=== PATIENT | male | born 1995 | race Caucasian/White ===

== ENCOUNTER 2020-06-29 20:31 | Emergency (ER) | payer OTHER, SELFPAY ==
--- NOTE | ~2020-06-29 | XR_ITS ---
EXAMINATION: XR chest 1V portable EXAM DATE: 06/29/2020 20:58 INDICATION: Diabetic ketoacidosis. TECHNIQUE: Portable AP frontal chest x-ray was obtained. There is no prior study for comparison. FINDINGS: The lungs are clear. There are no pleural effusions. The cardiomediastinal silhouette is within normal limits. There is no pneumothorax suspected. The bones and soft tissues are unremarkab le. IMPRESSION: Normal chest x-ray exam. Reviewed, dictated and finalized at location A. IMPRESSION: Normal chest x-ray exam.
[2020-06-29 20:33] VITALS: BP 118/68; PULSE 108; RESP 16; TEMP 36.8; O2SAT 100
[2020-06-29 20:35] VITALS: BP 118/68; PULSE 108; RESP 16; TEMP 36.8; O2SAT 100
--- NOTE | 2020-06-29 20:50 | ECG_ITS ---
Measurements Intervals [place] Rate: 112 P: 68 [place]: 128 QRS: 39 QRSD: 89 T: 47 QT: 309 QTc: 424 Interpretive Statements SINUS TACHYCARDIA POSSIBLE RIGHT ATRIAL ENLARGEMENT LEFT ATRIAL ENLARGEMENT NONSPECIFIC T-WAVE ABNORMALITY- INFERIOR LEADS ABNORMAL ECG Electronically Signed On 06-30-2020 7:09:13 CDT by Coy Bhat D.O.
[2020-06-29] MEDS: ONDANSETRON INJ 4 MG/2 ML VIAL IV PUSH (20:54)
[2020-06-29 20:56] LABS: Basophils Absolute Auto 0.11 K/mm3 (0.00-0.10); Eosinophils Absolute Auto 0.18 K/mm3 (0.02-0.50); Eosinophils Percent Auto 1.6 % (1.0-6.0); Hematocrit 52.3 % (40.0-54.0); Hemoglobin 17.5 g/dL (14.0-18.0); Immature Granulocyte Percent A 0.9 % (0.0-0.0); Lymphocytes Absolute Auto 2.21 K/mm3 (1.10-4.50); Lymphocytes Percent Auto 20.2 % (18.0-42.0); Mean Corpuscular HGB Conc 33.5 g/dL (32.0-36.0); Mean Corpuscular Hemoglobin 29.9 pg (27.0-31.0); Mean Corpuscular Volume 89.4 fL (78.0-102.0); Mean Platelet Volume 10.6 fl (8.7-11.0); Monocytes Absolute Auto 0.33 K/mm3 (0.10-0.90); Neutrophils Percent Auto 73.3 % (50.0-70.0); Platelet Count Result 445 K/mm3 (150-420); Red Blood Count 5.85 M/mm3 (4.70-6.10); Red Cell Distribution Width 11.9 % (11.6-14.4)
[2020-06-29] MEDS: INSULIN HUMAN REGULAR (*BKC) 100 UNITS in SODIUM CHLORIDE 0.9% IV 99 ML 6 UNITS IV CONT (21:00)
[2020-06-29] MEDS: SODIUM CHLORIDE 0.9% IV 100 ML 6 ML (21:00)
[2020-06-29] MEDS: SODIUM CHLORIDE 0.9% IV 2,000 ML 999 ML IV CONT (21:02)
[2020-06-29 21:03] LABS: Acetone Small (Negative)
[2020-06-29] MEDS: KETOROLAC 15 MG/ML VIAL (*BKC) IV PUSH (21:03)
[2020-06-29 21:11] LABS: Alanine Aminotransferase 58 U/L (16-63); Albumin Level 4.7 g/dL (3.4-5.0); Alkaline Phosphatase 146 U/L (46-116); Anion Gap 24 mmol/L (8-16); Aspartate Amino Transferase 28 U/L (15-37); Bilirubin,Total 0.7 mg/dL (0.00-1.00); Blood Urea Nitrogen 22 mg/dL (7-18); Calcium 10.4 mg/dL (8.5-10.1); Carbon Dioxide 15 mmol/L (21-32); Chloride 95 mmol/L (98-108); Estimated CRCL calculation 55 ml/min; Estimated Glomerular Filt Rate 57; Lipase 97 U/L (73-393); Potassium 3.9 mmol/L (3.5-5.1); Sodium 134 mmol/L (136-145); Total Protein 9.4 g/dL (6.4-8.2)
[2020-06-29 21:13] LABS: Glucose 596 mg/dL (70-99); Osmolality Calculated 309 mOsm/kg (285-295)
[2020-06-29 21:20] LABS: Add Urine Microscopic? YES; Appearance Urine Clear (Clear); Bilirubin Urine Negative (Negative); Blood Urine 3+ (Negative); Color Urine Yellow (Yellow); Glucose Urine UA 3+ (Negative); Ketones Urine 3+ (Negative); Leukocyte Esterase Ur Negative LEU/UL (Negative); Nitrate Urine Negative (Negative); Protein Urine Negative (Negative); Urobilinogen Urine 0.2 mg/dL (0.2-1.0)
[2020-06-29 21:26] LABS: Bacteria Urine Trace /hpf; WBC Urine 0-3 /hpf (0-3)
--- NOTE | 2020-06-29 21:32 | ED.GENADULT ---
HPI - General Adult General Chief complaint: Nausea/Vomiting/Diarrhea Stated complaint: DKA Source: patient Mode of arrival: ambulatory Limitations: no limitations History of Present Illness HPI narrative: Pt is a diabetic, and has had some problems getting his insulin. He started feeling sick about 6 hours ago. He has been vomiting and having a lot of nausea ever since this started. He had DKA last several months ago. He denies fever chills. He has had abdominal pain, and that started about a week ago. he states the discomfort is in his lower abdomen. (however he pointed to periumbilical area for pain. Location: abdomen Radiation: non-radiation Pain Consistency: constant Relieving factors: none Exacerbating factors: none Associated symptoms: diaphoresis, loss of appetite, nausea/vomiting and weakness Related Data Home Medications Medication Instructions Recorded Confirmed insulin glargine [Lantus U-100 40 unit SUBCUT QPM 06/29/20 06/29/20 Insulin] metoprolol tartrate 12.5 mg PO BID 06/29/20 06/29/20 omeprazole 10 mg PO DAILY 06/29/20 06/29/20 simvastatin 10 mg PO DAILY 06/29/20 06/29/20 Allergies Allergy/AdvReac Type Severity Reaction Status Date / Time No Known Allergies Allergy Verified 06/29/20 21:23 Review of Systems Review of Systems: All systems reviewed & are unremarkable except as noted in HPI and below Constitutional: Constitutional: Denies chills, Reports fatigue, Denies fever(s) and Reports weakness Eyes: Eyes: Reports no additional eye complaints ENT: Reports system reviewed and no additional complaints, except as documented Cardiovascular: Cardiovascular: Reports no additional cardiovascular complaints Respiratory: Respiratory: Reports no additional respiratory complaints Gastrointestinal: Gastrointestinal: Reports abdominal pain, Denies bloating, Denies constipation, Denies heartburn, Denies diarrhea, Reports nausea and Reports vomiting Genitourinary: Genitourinary: Reports no additional male genitourinary complaints Musculoskeletal: Musculoskeletal: Reports no additional musculoskeletal complaints Integumentary/Breasts: Skin/Breast: Reports system reviewed and no additional complaints, except as docu Neurologic: Reports system reviewed and no additional complaints, except as documented and Reports weakness Psychiatric: Psychiatric: Reports no additional psychiatric complaints Endocrine: Endocrine: Reports no additional endocrine complaints Hematologic/Lymphatic: Hematologic/Lymphatic: Reports no additional hematologic/lymphatic complaints Allergic/Immunologic: Allergic/Immunologic: Reports no additional allergic/immunologic complaints [facility] Past Medical History Medical History (Updated 06/30/20 @ 00:26 by Hayley Gonzales MD) Diabetes HTN (hypertension) Hypercholesteremia Myocardial infarct, old Social History Social History Gender identity (if verbalized by the patient): Male Exam Const: General: alert and ill appearing Nutritional Appearance: thin HENMT: Head: normal to inspection, no contusions, no hematomas and no lacerations Face and sinus: normal facial exam Mouth: Yes moist mucous membranes Eyes: Conjunctivae: conjunctivae normal Pupils: Equal, round and reactive pupils present Neck: Neck: normal visual inspection Chest: Chest palpation & inspection: normal inspection of the chest Resp: Effort & Inspection: normal respiratory effort Auscultation: clear to auscultation bilaterally Cardio: Rate: tachycardic Rhythm: regular rhythm GI: GI Palp: Yes Soft to palpation and Yes Tenderness to palpation present (GI) (diffusely tender) Auscultation: normal bowel sounds Back/Spine/Pelvis: Back: no CVA tenderness Skin: General skin exam: normal color Rashes: no rashes Neuro: General: patient oriented x3 and moves all extremities Extrem: General: normal to inspection and no pedal edema
[2020-06-29 22:02] LABS: Glucose Point of Care 317 (65-105)
[2020-06-29 22:25] VITALS: BP 104/51; PULSE 81; RESP 18; O2SAT 98
[2020-06-29 22:44] LABS: Glucose Point of Care 286 (65-105)
[2020-06-29 22:59] VITALS: BP 104/54; PULSE 83; RESP 16; O2SAT 98
[2020-06-29] MEDS: SODIUM CHLORIDE 0.9% IV 1,000 ML 999 ML IV CONT (23:10)
--- NOTE | 2020-06-29 23:12 | PC.NURSE ---
2nd liter of NS completed at 2308, 3rd liter started 2310
[2020-06-29 23:17] LABS: Glucose Point of Care 234 (65-105)
[2020-06-29 23:48] LABS: Glucose Point of Care 205 (65-105)
[2020-06-30 00:11] VITALS: BP 108/80; PULSE 77; RESP 16; O2SAT 99
[2020-06-30 00:13] LABS: Glucose Point of Care 183 (65-105)
[2020-06-30 00:14] LABS: Acetone Small (Negative)
[2020-06-30 00:16] LABS: Anion Gap 12 mmol/L (8-16); Blood Urea Nitrogen 20 mg/dL (7-18); Calcium 8.3 mg/dL (8.5-10.1); Carbon Dioxide 23 mmol/L (21-32); Chloride 108 mmol/L (98-108); Estimated CRCL calculation 74 ml/min; Estimated Glomerular Filt Rate > 60; Glucose 219 mg/dL (70-99); Osmolality Calculated 305 mOsm/kg (285-295); Potassium 4.2 mmol/L (3.5-5.1); Sodium 143 mmol/L (136-145)
--- NOTE | 2020-06-30 00:26 | PC.NURSE ---
patient signed out AMA
--- NOTE | 2020-06-30 00:28 | PC.NURSE ---
NS 3liter infused, Insulin gtt stopped. IV removed intact.
== END 2020-06-30 00:28 | disposition left against medical advice (07) ==
PROVIDERS: Emergency Provider Emergency Medicine
DX: E11.10 Type 2 diabetes mellitus with ketoacidosis without coma (principal); Z79.4 Long term (current) use of insulin
CPT/HCPCS: 36415; 71045; 80048; 80053; 81001; 82010; 82948; 83690; 85025; 93005; 96365; 96366; 96375; 99283; 99284; J1885; J2405; J7030

== ENCOUNTER 2020-11-22 10:40 | Emergency (ER) | payer OTHER, SELFPAY ==
[2020-11-22 11:12] VITALS: BP 130/80; PULSE 94; RESP 20; TEMP 36.7; O2SAT 99
--- NOTE | 2020-11-22 11:18 | ED.HA ---
HPI - Headache General Chief Complaint: Headache Stated Complaint: headace, n/v/d Time Seen by Provider: 11/22/20 11:08 History of Present Illness HPI Narrative: 25 yo male presents to the ED for a headache. He reports that he has had a chronic episodic headache for more than a month. He states that he has been seen in the ED for it numerous times and had many tests done. He says that he does not want to talk about it anymore. He is only here because his girlfriend made him come and he would like to be discharged. Related Data Home Medications Medication Instructions Recorded Confirmed insulin glargine [Lantus U-100 40 unit SUBCUT QPM 06/29/20 06/29/20 Insulin] metoprolol tartrate 12.5 mg PO BID 06/29/20 06/29/20 aspirin 81 mg PO DAILY 11/22/20 gabapentin 250 mg PO DAILY 11/22/20 insulin lispro [Humalog U-100 1 sliding scale dose SUBCUT 11/22/20 Insulin] USEASDIRECTD pantoprazole 20 mg PO QAM 11/22/20 Allergies Allergy/AdvReac Type Severity Reaction Status Date / Time No Known Allergies Allergy Verified 11/22/20 11:15 Review of Systems Review of Systems: Narrative: Unable to obtain due to patient refusal. Constitutional: Constitutional: Denies fever(s) Eyes: Eyes: Reports photophobia Neurologic: Denies confusion and Reports headache(s) [facility] Past Medical History Medical History Diabetes HTN (hypertension) Hypercholesteremia Myocardial infarct, old Social History Social History Gender identity (if verbalized by the patient): Male Exam Narrative: Exam Narrative: Exam limited by refusal of patient to participate Const: General: healthy appearing, no acute distress and alert Orientation/consciousness: patient oriented x3 HENMT: Head: normal to inspection Resp: Effort & Inspection: normal respiratory effort Skin: General skin exam: normal color Neuro: General: patient oriented x3 and moves all extremities Speech: normal speech Gait exam (Neuro): Normal gait present Extrem: General: normal to inspection Course Vital Signs Vital signs: Vital Signs Temperature 36.7 C 11/22/20 11:12 Pulse Rate 94 11/22/20 11:12 Respiratory Rate 20 11/22/20 11:12 Blood Pressure 130/80 11/22/20 11:12 Pulse Oximetry 99 11/22/20 11:12 Temperature 36.7 C 11/22/20 11:12 Pulse Rate 94 11/22/20 11:12 Respiratory Rate 20 11/22/20 11:12 Blood Pressure 130/80 11/22/20 11:12 Pulse Oximetry 99 11/22/20 11:12 MDM - Headache MDM Narrative Medical decision making narrative: Evaluation limited. I told the patient that I would not be able to help him if he would not provide history or allow me to examine him. He said that he understands and does not want any further evaluation. Differential Diagnosis Differential diagnosis: Likely migraine, tension headache, subarachnoid hemorrhage and headache Discharge Plan Discharge Clinical Impression: Headache Qualifiers: Headache type: unspecified Headache chronicity pattern: episodic headache Patient Disposition: Home, Self-Care Condition: Stable Instructions: Acute Headache (ED) Prescriptions: No Action Lantus U-100 Insulin 100 unit/mL Solution 40 unit SUBCUT QPM RF: 0 metoprolol tartrate 25 mg Tablet 12.5 mg PO BID RF: 0 pantoprazole 20 mg Tablet,Delayed Release (Dr/Ec) 20 mg PO QAM RF: 0 aspirin 81 mg Tablet 81 mg PO DAILY RF: 0 insulin lispro [Humalog U-100 Insulin] 100 unit/mL Solution 1 sliding scale dose SUBCUT USEASDIRECTD RF: 0 gabapentin 100 mg Tablet 250 mg PO DAILY RF: 0 Follow-up/Referrals: Celio,Josh Coleman MD [Primary Care Provider] -
--- NOTE | 2020-11-22 11:31 | PC.NURSE ---
Pt does not want to stay. Tore his armband off and ambulated out of dept.
== END 2020-11-22 11:33 | disposition home or self-care (01) ==
PROVIDERS: Emergency Provider Emergency Medicine; PCP Internal Medicine
DX: R51.9 Headache, unspecified (principal); E11.9 Type 2 diabetes mellitus without complications; I10 Essential (primary) hypertension; E78.00 Pure hypercholesterolemia, unspecified; I25.2 Old myocardial infarction
CPT/HCPCS: 99281

== ENCOUNTER 2021-02-23 16:28 | Emergency (ER) | payer OTHER, SELFPAY ==
--- NOTE | ~2021-02-23 | XR_ITS ---
EXAMINATION: XR chest 1V portable DATE: 02/23/2021 16:44 INDICATION: Diabetes. TECHNIQUE: A single frontal view of the chest was obtained. COMPARISON: Chest single view 06/29/2020 FINDINGS: The chest demonstrates clear lungs without pneumonia, pleural effusion, or pneumothorax. Th e heart size is normal. IMPRESSION: 1. No acute cardiopulmonary disease. Reviewed, dictated and finalized at location A.
[2021-02-23 16:27] VITALS: BP 126/79; PULSE 103; RESP 14; TEMP 36.6; O2SAT 99
--- NOTE | 2021-02-23 16:35 | ECG_ITS ---
Measurements Intervals [place] Rate: 103 P: 62 [place]: 134 QRS: 37 QRSD: 93 T: 44 QT: 324 QTc: 424 Interpretive Statements SINUS TACHYCARDIA POSSIBLE LEFT ATRIAL ENLARGEMENT BORDERLINE T WAVE ABNORMALITY- INFERIOR LEADS BASELINE WANDER- I, II, III BORDERLINE ECG Electronically Signed On 02-24-2021 6:54:29 CDT by Coy Bhat D.O.
[2021-02-23 17:05] LABS: Basophils Absolute Auto 0.1 K/mm3 (0.0-0.1); Basophils Percent Auto 0.9 % (0.2-1.2); Eosinophils Absolute Auto 0.6 K/mm3 (0-0.3); Eosinophils Percent Auto 4.8 % (0-4.4); Hematocrit 42.9 % (42.0-52.0); Hemoglobin 14.4 g/dL (14.0-18.0); Immature Granulocyte Absolute 0.07 K/mm3 (0.00-0.031); Immature Granulocyte Percent A 0.5 % (0-0.5); Lymphocytes Absolute Auto 1.65 K/mm3 (0.9-3.2); Lymphocytes Percent Auto 12.9 % (18.3-44.2); Mean Corpuscular HGB Conc 33.6 g/dl (32-36); Mean Corpuscular Hemoglobin 30.3 pg (26-34); Mean Corpuscular Volume 90.3 fl (80-100); Mean Platelet Volume 9.4 fl (7.4-10.4); Monocytes Absolute Auto 0.8 K/mm3 (0.1-0.6); Monocytes Percent Auto 6.5 % (2.6-8.5); Neutrophils Absolute Auto 9.5 K/mm3 (1.3-6.7); Neutrophils Percent Auto 74.4 % (45.5-73.1); Platelet Count Result 396 k/mm3 (150-375); Red Blood Count 4.75 M/mm3 (4.6-6.20); Red Cell Distribution Width 12.4 % (11.5-14.5); White Blood Count 12.8 K/mm3 (4.5-10.0)
[2021-02-23 17:15] LABS: Ethanol < 10 mg/dL (<10); INR 0.9; Prothrombin Time 12.6 Seconds (11.1-14.7)
[2021-02-23 17:23] LABS: Alanine Aminotransferase 86 U/L (4-50); Albumin Level 4.1 g/dL (3.5-5.1); Alkaline Phosphatase 128 U/L (38-126); Anion Gap 11 mmol/L (8-16); Aspartate Amino Transferase 70 U/L (17-59); Bilirubin,Total 0.3 mg/dL (0.2-1.3); Blood Urea Nitrogen 16 mg/dL (9-20); Calcium 9.6 mg/dL (8.4-10.2); Carbon Dioxide 27 mmol/L (22-30); Chloride 102 mmol/L (98-107); Estimated CRCL calculation 124 ml/min; Estimated Glomerular Filt Rate > 60; Glucose 123 mg/dL (75-110); Potassium 3.6 mmol/L (3.4-5.0); Sodium 140 mmol/L (137-145)
[2021-02-23 17:28] LABS: NT Pro B Type Natriuretic Pept 66 pg/mL (5-100); Troponin I < 0.012 ng/mL (0.000-0.034)
[2021-02-23 17:38] VITALS: BP 97/56; PULSE 88; RESP 14; O2SAT 98
[2021-02-23 17:53] LABS: Amphetamine Screen Urine Negative (Negative); Barbiturate Screen Urine Negative (Negative); Benzodiazepines Screen Urine Negative (Negative); Cannabinoid Screen Urine Positive (Negative); Cocaine Screen Urine Negative (Negative); Methadone Screen Urine Negative (Negative); Opiate Screen Urine Negative (Negative); Phencyclidine Screen Urine Negative (Negative)
[2021-02-23 18:09] VITALS: BP 99/57; PULSE 95; RESP 14; O2SAT 100
--- NOTE | 2021-02-23 18:12 | ED.GENADULT ---
HPI - General Adult General Chief complaint: Recheck/Abnormal Lab/Rx Stated complaint: low bg Time Seen by Provider: 02/23/21 16:30 Source: patient Mode of arrival: EMS Limitations: no limitations History of Present Illness HPI narrative: 25-year-old with a history of type 1 diabetes was brought in from home in an ambulance with complaints of passing out spell. As per the EMS he was hypoglycemic. 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 Patient states that he does not check his blood sugar but he does use sliding scale. Patient states that he was taking his grandpa to [facility] and did eat some lunch later. Patient also mentions he was trying to fix garbage disposal under the sink and he blacked out for few minutes. Patient presently denies any headache, chest pain, shortness of breath, nausea or vomiting. Denies alcohol or drug use. Onset (ago): minute(s) (45) Exacerbating factors: none Associated symptoms: denies other symptoms Related Data Home Medications Medication Instructions Recorded Confirmed insulin glargine [Lantus U-100 40 unit SUBCUT QPM 06/29/20 06/29/20 Insulin] metoprolol tartrate 12.5 mg PO BID 06/29/20 06/29/20 aspirin 81 mg PO DAILY 11/22/20 gabapentin 250 mg PO DAILY 11/22/20 insulin lispro [Humalog U-100 1 sliding scale dose SUBCUT 11/22/20 Insulin] USEASDIRECTD pantoprazole 20 mg PO QAM 11/22/20 Allergies Allergy/AdvReac Type Severity Reaction Status Date / Time No Known Allergies Allergy Verified 02/23/21 16:31 Review of Systems Review of Systems: All systems reviewed & are unremarkable except as noted in HPI and below Constitutional: Constitutional: Reports no additional constitutional complaints Eyes: Eyes: Reports no additional eye complaints ENT: Reports system reviewed and no additional complaints, except as documented Cardiovascular: Cardiovascular: Reports no additional cardiovascular complaints Gastrointestinal: Gastrointestinal: Reports no additional gastrointestinal complaints Musculoskeletal: Musculoskeletal: Reports no additional musculoskeletal complaints Integumentary/Breasts: Skin/Breast: Reports system reviewed and no additional complaints, except as docu Neurologic: Reports system reviewed and no additional complaints, except as documented [facility] Past Medical History Medical History Diabetes HTN (hypertension) Hypercholesteremia Myocardial infarct, old Social History Social History Gender identity (if verbalized by the patient): Male Exam Narrative: Exam Narrative: GENERAL: Well-appearing, well-nourished, and in no acute distress. HEAD: Normocephalic, atraumatic. EYES: PERRLA and EOMI. ENT: Nares clear, no rhinorrhea or epistaxis. Mucous membranes moist. NECK: Supple. CHEST: Tachycardic HEART: Regular rate and rhythm. No murmur heard. Normal peripheral pulses. ABDOMEN: Soft, nontender, nondistended, normal active bowel sounds. EXTREMITIES: Normal range of motion. No edema. SKIN: Warm, dry, has multiple superficial ulcers in both upper extremities nondraining NEURO: No focal deficits. Alert and oriented x3. PSYCH: Normal mood and affect. Course Course Emergency Course: Patient was placed on the ED cardiac monitor upon arrival few minutes later he had a brief episode of nonsustained V. tach which was captured. However he had no symptoms when he had this episode. I was in the room talking to him I did mention to him did you feel anything and he said no. I discussed lab work and EKG findings with him and recommended for admission. Patient agreed for admission few minutes later he calls nursing that he wants to sign out AMA. Vital Signs Vital signs: Vital Signs Temperature 36.6 C 02/23/21 16:27 Pulse R
== END 2021-02-23 18:15 | disposition left against medical advice (07) ==
PROVIDERS: Emergency Provider Family Medicine
DX: R55 Syncope and collapse (principal); E10.649 Type 1 diabetes mellitus with hypoglycemia without coma; I10 Essential (primary) hypertension; E78.00 Pure hypercholesterolemia, unspecified; I25.2 Old myocardial infarction; Z79.4 Long term (current) use of insulin; R00.0 Tachycardia, unspecified; R94.31 Abnormal electrocardiogram [ECG] [EKG]
CPT/HCPCS: 36415; 71045; 80053; 80307; 83735; 83880; 84443; 84484; 85025; 85610; 93005; 99284

== ENCOUNTER 2021-02-25 22:25 | Emergency (ER) | payer OTHER, SELFPAY ==
[2021-02-25 22:30] VITALS: BP 125/86; PULSE 97; RESP 20; TEMP 36.3; O2SAT 100
--- NOTE | 2021-02-25 22:38 | ED.RECABL ---
HPI - Recheck/Abnormal Lab/Rx General Chief Complaint: Nausea/Vomiting/Diarrhea Stated Complaint: Daibetic sugars are 519/been throwing Source: patient and RN notes reviewed Mode of arrival: ambulatory Limitations: no limitations History of Present Illness HPI narrative: patient is having some vomiting and elevated blood sugar to 519. He was just released from [facility] at 1:00 p.m.. He was there in the emergency room for approximately 5 hours and was given IV fluids. He was at [facility] 2 days ago for low blood sugar. He was given prescriptions for his insulin. He does not have a primary care physician. He does not monitor his blood sugars. He gets his insulin from the emergency room. MD complaint: abnormal lab Symptoms since prior visit: fever Related Data Home Medications Medication Instructions Recorded Confirmed insulin glargine [Lantus U-100 35 unit SUBCUT QPM 06/29/20 02/25/21 Insulin] insulin lispro [Humalog U-100 1 sliding scale dose SUBCUT 11/22/20 02/25/21 Insulin] USEASDIRECTD Allergies Allergy/AdvReac Type Severity Reaction Status Date / Time No Known Allergies Allergy Verified 02/23/21 16:31 Review of Systems Review of Systems: All systems reviewed & are unremarkable except as noted in HPI and below Constitutional: Constitutional: Denies chills and Denies fever(s) Cardiovascular: Cardiovascular: Denies chest pain Respiratory: Respiratory: Denies cough and Denies dyspnea Gastrointestinal: Gastrointestinal: Reports as per HPI and Denies diarrhea Genitourinary: Genitourinary: Denies hematuria and Denies dysuria Musculoskeletal: Musculoskeletal: Reports no additional musculoskeletal complaints Neurologic: Reports headache(s) and Denies focal weakness PMFSH Past Medical History Medical History (Updated 02/26/21 @ 00:46 by Morris Colorado MD) Diabetes HTN (hypertension) Hypercholesteremia Myocardial infarct, old Surgical History Surgical History (Updated 02/25/21 @ 23:00 by Morris Colorado MD) H/O heart artery stent Social History Social History Gender identity (if verbalized by the patient): Male Exam Const: General: healthy appearing and no acute distress Nutritional Appearance: well nourished and thin Orientation/consciousness: patient oriented x3 HENMT: Head: normal to inspection Ears: external ears normal Face and sinus: normal facial exam Mouth: Yes moist mucous membranes Eyes: Conjunctivae: conjunctivae normal Pupils: Equal, round and reactive pupils present EOM: EOMs intact bilaterally Neck: Neck: normal visual inspection Resp: Effort & Inspection: normal respiratory effort Auscultation: clear to auscultation bilaterally Cardio: Rate: regular rate Rhythm: regular rhythm GI: GI Palp: Yes Soft to palpation and No Tenderness to palpation present (GI) Auscultation: normal bowel sounds Back/Spine/Pelvis: Cervical Spine: cervical ROM normal Thoracic/Lumbar Spine: thoraco-lumbar ROM normal Skin: General skin exam: normal color Rashes: no rashes Neuro: General: patient oriented x3, moves all extremities and no focal motor deficits Speech: normal speech Gait exam (Neuro): Normal gait present Extrem: General: normal to inspection and no clubbing, cyanosis or edema Psych: Appearance: grossly normal and well kempt Mental Status: mental status grossly normal Affect: normal affect Attitude: cooperative Thought content: Yes Normal thought content present Course Course Emergency Course: patient much better after 1 L of LR and insulin. He is not in DKA. He understands he has to monitor his blood sugars better. Vital Signs Vital signs: Vital Signs Temperature 36.3 C L 02/25/21 22:30 Pulse Rate 97 02/25/21 22:30 Respiratory Rate 20 02/25/21 22:30 Blood Pressure 125/86 02/25/21 22:30 Pulse Oximetry 100 02/25/21 22:30 Temperature 36.6 C 02/26/21 00:51
[2021-02-25 22:57] LABS: Glucose Point of Care 426 (65-105)
[2021-02-25 23:05] LABS: Add Urine Microscopic? YES; Appearance Urine Clear (Clear); Basophils Absolute Auto 0.11 K/mm3 (0.00-0.10); Basophils Percent Auto 1.1 % (0.0-1.0); Bilirubin Urine Negative (Negative); Blood Urine Negative (Negative); Color Urine Yellow (Yellow); Eosinophils Absolute Auto 0.39 K/mm3 (0.02-0.50); Eosinophils Percent Auto 3.9 % (1.0-6.0); Glucose Urine UA 3+ (Negative); Hematocrit 40.1 % (40.0-54.0); Hemoglobin 13.1 g/dL (14.0-18.0); Immature Granulocyte Absolute 0.05 K/mm3 (0.00-0.00); Immature Granulocyte Percent A 0.5 % (0.0-0.0); Ketones Urine 3+ (Negative); Leukocyte Esterase Ur Negative LEU/UL (Negative); Lymphocytes Absolute Auto 2.01 K/mm3 (1.10-4.50); Lymphocytes Percent Auto 19.9 % (18.0-42.0); Mean Corpuscular HGB Conc 32.7 g/dL (32.0-36.0); Mean Corpuscular Hemoglobin 29.9 pg (27.0-31.0); Mean Corpuscular Volume 91.6 fL (78.0-102.0); Mean Platelet Volume 9.9 fl (8.7-11.0); Monocytes Absolute Auto 0.75 K/mm3 (0.10-0.90); Monocytes Percent Auto 7.4 % (2.0-11.0); Neutrophils Absolute Auto 6.8 K/mm3 (1.7-7.2); Neutrophils Percent Auto 67.2 % (50.0-70.0); Nitrate Urine Negative (Negative); Platelet Count Result 325 K/mm3 (150-420); Protein Urine Negative (Negative); Red Blood Count 4.38 M/mm3 (4.70-6.10); Red Cell Distribution Width 12.3 % (11.6-14.4); Urobilinogen Urine 0.2 mg/dL (0.2-1.0); White Blood Count 10.1 K/mm3 (4.8-10.8); pH Urine 5.5 (5.0-8.0)
[2021-02-25 23:14] LABS: Bacteria Urine Trace /hpf; RBC Urine 0-2 /hpf (0-2); Squamous Epithelial Cell Urine None seen /hpf (Few); WBC Urine 0-3 /hpf (0-3)
[2021-02-25] MEDS: LACTATED RINGERS 1,000 ML 999 ML IV CONT (23:21)
[2021-02-25] MEDS: ONDANSETRON INJ 4 MG/2 ML VIAL IV PUSH (23:22)
[2021-02-25] MEDS: INSULIN HUMAN REGULAR (*BKC) 100 UNITS/ML 15 UNITS SUB-Q (23:24)
[2021-02-25 23:25] LABS: Lactic Acid Reflex 1.5 mmol/L (0.4-2.0)
[2021-02-25] MEDS: INSULIN HUMAN REGULAR (*BKC) 100 UNITS/ML 7 UNITS IV PUSH (23:25)
[2021-02-25 23:28] LABS: Alanine Aminotransferase 96 U/L (16-63); Albumin Level 3.2 g/dL (3.4-5.0); Alkaline Phosphatase 183 U/L (46-116); Anion Gap 14 mmol/L (8-16); Aspartate Amino Transferase 50 U/L (15-37); Bilirubin,Total 0.6 mg/dL (0.00-1.00); Blood Urea Nitrogen 23 mg/dL (7-18); CRP 1.3 mg/dL (0.0-0.9); Calcium 9.1 mg/dL (8.5-10.1); Carbon Dioxide 24 mmol/L (21-32); Chloride 95 mmol/L (98-108); Estimated CRCL calculation 59 ml/min; Estimated Glomerular Filt Rate > 60; Potassium 4.9 mmol/L (3.5-5.1); Sodium 133 mmol/L (136-145)
[2021-02-25 23:29] LABS: Glucose 512 mg/dL (70-99); Osmolality Calculated 302 mOsm/kg (285-295)
--- NOTE | 2021-02-26 00:08 | PC.NURSE ---
Addendum entered by Ingrid Galo RN 02/26/21 00:11: Amended note, BS was at 321. Original Note: Pt. sleeping, IVF infused and recheck of BS is now at 367. VSS
[2021-02-26 00:38] LABS: Glucose Point of Care 321 (65-105)
[2021-02-26 00:51] VITALS: BP 130/74; PULSE 75; RESP 20; TEMP 36.6; O2SAT 100
[2021-02-26 17:09] LABS: Glucose Point of Care 299 (65-105)
== END 2021-02-26 00:54 | disposition home or self-care (01) ==
PROVIDERS: Emergency Provider Emergency Medicine
DX: E10.65 Type 1 diabetes mellitus with hyperglycemia (principal); Z79.4 Long term (current) use of insulin
CPT/HCPCS: 36415; 80053; 81001; 82948; 83605; 85025; 86140; 96361; 96374; 96375; 99283; 99284; J1815; J2405; J7120

== ENCOUNTER 2021-03-02 10:19 | Emergency (ER) | payer OTHER, SELFPAY ==
--- NOTE | ~2021-03-02 | XR_ITS ---
XR chest 2V DATE: 03/02/2021 10:53 INDICATION: Shortness of breath. Tachycardia. Smoker. TECHNIQUE: PA and lateral views COMPARISON: 02/23/2021 portable AP chest FINDINGS: Normal heart size. No hilar or mediastinal enlargement. No pulmonary infiltrate or consol idation, pulmonary vascular congestion or pleural effusion or pneumothorax. IMPRESSION: No active cardiopulmonary disease Reviewed, dictated and finalized at location A.
--- NOTE | 2021-03-02 10:25 | ED.GENADULT ---
HPI - General Adult General Chief complaint: Upper Respiratory Infection Stated complaint: Shortness of Breath Time Seen by Provider: 03/02/21 10:38 Source: patient and RN notes reviewed Mode of arrival: ambulatory Limitations: no limitations History of Present Illness HPI narrative: 25-year-old male presents with complains of shortness of breath and dry cough for the past 4-5 days. Jeramie reports increasing symptoms daily with wheezing and PND. Mucinex and Albuterol inhaler without relief. History of Asthma. Jeramie report several hospital visit over the past 72 hours. Dry cough with chest congestion. Rhinorrhea and nasal congestion. Denies sore throat. No high fevers, drooling, neck or throat swelling. No chest pain or swelling of extremities. Exacerbation factors consists of smoke exposure. Denies nausea, vomiting, and abdominal pain. Tolerating liquids well. Remains active. The patient reports he have not been diagnosed with COVID-19. The patient reports he have not received the COVID-19 vaccines. The patient reports he is not waiting for the results of a COVID-19 lab test. The patient reports he do not have chills, weakness, or fatigue. The patient reports he do not have any loss of taste or smell or diarrhea. Denies recent traveling. Denies concerns for COVID-19 or exposures been home with limited outdoor exposure except for essential household needs and return home. At this time, patient is not suspected of having COVID-19. Some parts of this dictation were generated by voice recognition software and may contain typographical and/or grammatical inaccuracies. Related Data Home Medications Medication Instructions Recorded Confirmed insulin glargine [Lantus U-100 40 unit SUBCUT QPM 06/29/20 02/25/21 Insulin] insulin lispro [Humalog U-100 1 sliding scale dose SUBCUT 11/22/20 03/02/21 Insulin] USEASDIRECTD albuterol sulfate [ProAir HFA] 2 puff INHALATION QID PRN 03/02/21 03/02/21 gabapentin 100 mg PO DAILY 03/02/21 03/02/21 Allergies Allergy/AdvReac Type Severity Reaction Status Date / Time No Known Allergies Allergy Verified 03/02/21 10:26 Review of Systems Review of Systems: Narrative: CONSTITUTIONAL: Denies fever, chills, sweats. EYES: Denies visual changes, redness, discharge. ENT: Denies rhinorrhea, congestion, sore throat, otalgia. CARDIOVASCULAR: Denies chest pain, palpitations, edema. RESPIRATORY: Complains of dry cough, dyspnea, wheezing. GASTROINTESTINAL: Denies abdominal pain, nausea, vomiting, diarrhea. GENITOURINARY: Denies dysuria, hematuria, abnormal discharge. SKIN: Denies rash or itching. MUSCULOSKELETAL: Denies acute back pain, joint pain, or myalgia. NEUROLOGIC: Denies numbness or focal weakness. PSYCHIATRIC: Denies anxiety or depression. All systems reviewed & are unremarkable except as noted in HPI and below. [facility] Past Medical History Medical History Diabetes HTN (hypertension) Hypercholesteremia Myocardial infarct, old Surgical History Surgical History H/O heart artery stent Family History Family History (Updated 03/02/21 @ 11:25 by JULIET Carranza) Father , Meth overdose Diabetes mellitus Mother Hypertension Social History Social History (Updated 03/02/21 @ 11:26 by JULIET Carranza) Smoking packs per day: 1 Smoking cigarettes per day: 20.0 Years smoked: 8 Smoking pack-years: 8.00 Smoking status: Current every day smoker Tobacco type: cigarettes Second hand tobacco smoke exposure: Yes Alcohol intake: never Substance use: current Substance use type: marijuana Gender identity (if verbalized by the patient): Male Comments At time of signature, agree with nurse past medical, surgical, social, and family history. There is relevant patient's history pertinent to the presenting complaint, no
--- NOTE | 2021-03-02 10:32 | ECG_ITS ---
Measurements Intervals [place] Rate: 115 P: 64 [place]: 131 QRS: 36 QRSD: 79 T: 52 QT: 282 QTc: 391 Interpretive Statements SINUS TACHYCARDIA POSSIBLE LEFT ATRIAL ENLARGEMENT BASELINE ARTIFACT- I, II, AVR, AVL ABNORMAL ECG Electronically Signed On 03-02-2021 10:58:29 CDT by Coy Bhat D.O.
[2021-03-02 10:34] VITALS: BP 124/98; PULSE 134; RESP 16; TEMP 36.2; O2SAT 100
[2021-03-02 10:42] LABS: Glucose Point of Care 261 (65-105)
[2021-03-02] MEDS: predniSONE 20 MG TABLET 60 MG PO (11:23)
[2021-03-02 11:28] VITALS: PULSE 119; RESP 20; O2SAT 99
[2021-03-02] MEDS: ALBUTEROL SULFATE NEB 2.5 MG/3 ML INH INHALATION (11:28)
[2021-03-02] MEDS: IPRATROPIUM BR 0.02% INH SOLN 0.5 MG/2.5 ML VIAL INHALATION (11:29)
[2021-03-02 11:50] VITALS: PULSE 109; RESP 20; O2SAT 99
--- NOTE | 2021-03-02 12:29 | PC.NURSE ---
1107 The albuterol 2.5mg/0.5mL not available in pyxis therefore not given, provider was notified and correct medication ordered.
== END 2021-03-02 12:00 | disposition home or self-care (01) ==
PROVIDERS: Emergency Provider Nurse Practitioner Family
DX: B34.9 Viral infection, unspecified (principal); R94.31 Abnormal electrocardiogram [ECG] [EKG]; F17.210 Nicotine dependence, cigarettes, uncomplicated; E11.9 Type 2 diabetes mellitus without complications; I10 Essential (primary) hypertension; E78.00 Pure hypercholesterolemia, unspecified; I25.2 Old myocardial infarction
CPT/HCPCS: 71046; 82948; 93005; 94640; 99213; G0463; J7512

== ENCOUNTER 2021-04-03 10:46 | Emergency (ER) | payer OTHER, SELFPAY ==
--- NOTE | ~2021-04-03 | XR_ITS ---
EXAMINATION: XR abdomen/kub 1V EXAM DATE: 04/03/2021 11:12 INDICATION: PAIN mid abd; constipation x 2 wks . TECHNIQUE: Frontal projection(s) of the abdomen for interpretation. There is no prior study for nitza lopes. FINDINGS: There is expected amount of colonic stool and gas. No small bowel dilation, nonobstructiv e bowel gas pattern. There are no suspicious calcifications identified. There is no organomegaly suspected. The bones are unremarkable. IMPRESSION: Unremarkable abdomen x-ray exam. Reviewed, dictated and finalized at location B.
--- NOTE | 2021-04-03 10:53 | ED.NAVMDI ---
HPI - Nausea/Vomiting/Diarrhea General Chief complaint: Abdominal Pain Stated complaint: vomiting/constipation Time Seen by Provider: 04/03/21 10:53 Source: patient and RN notes reviewed History of Present Illness HPI Narrative: Patient is a 25-year-old male who presents the urgent care with complaints of vomiting and constipation. Patient also reports of some upper abdominal pains. States that he has a history of H. pylori and gastroparesis. States that he talk to his physician this morning and was told to obtain a blood work and possible scans. Patient states that she is worried about a bowel obstruction . Patient states that his last normal bowel movement was approximately 2 weeks ago but he tries every morning . Patient states that he has daily vomiting but it has been more consistent after eating the last couple days. Patient currently denies of any nausea or fevers. Patient states he takes MiraLAX daily and was told by his physician to start omeprazole this morning. States that he did obtain some from his grandmother and took the medication as directed. No other acute complaints. No acute distress noted. Patient aware of the plan of care. Some parts of this dictation were generated by voice recognition software and may contain typographical and/or grammatical inaccuracies. Related Data Home Medications Medication Instructions Recorded Confirmed insulin glargine [Lantus U-100 40 unit SUBCUT QPM 06/29/20 02/25/21 Insulin] insulin lispro [Humalog U-100 1 sliding scale dose SUBCUT 11/22/20 03/02/21 Insulin] USEASDIRECTD polyethylene glycol 3350 [Miralax] 17 g PO DAILY 04/03/21 04/03/21 Allergies Allergy/AdvReac Type Severity Reaction Status Date / Time No Known Allergies Allergy Verified 04/03/21 11:03 Review of Systems Review of Systems: Narrative: CONSTITUTIONAL: Denies fever, chills, or sweats. EYES: Denies visual changes, redness, or discharge. ENT: Denies rhinorrhea, congestion, sore throat, or otalgia. CARDIOVASCULAR: Denies chest pain, palpitations, or edema. RESPIRATORY: Denies cough or dyspnea. GASTROINTESTINAL: Reports of constipation and upper abdominal pains with vomiting GENITOURINARY: Denies dysuria or hematuria. SKIN: Denies rash or itching. MUSCULOSKELETAL: Denies back pain, joint pain, or myalgia. NEUROLOGIC: Denies headache, numbness, or weakness. All other systems reviewed are negative, except as documented in HPI. [facility] Past Medical History Medical History Diabetes HTN (hypertension) Hypercholesteremia Myocardial infarct, old Surgical History Surgical History H/O heart artery stent Family History Family History Father , Meth overdose Diabetes mellitus Mother Hypertension Social History Social History Smoking packs per day: 1 Smoking cigarettes per day: 20.0 Years smoked: 8 Smoking pack-years: 8.00 Smoking status: Current every day smoker Tobacco type: cigarettes Second hand tobacco smoke exposure: Yes Alcohol intake: never Substance use: current Substance use type: marijuana Gender identity (if verbalized by the patient): Male Comments At the time of my signature, I reviewed and agree with the nursing past medical, surgical, social, and family history. There is no relevant family history pertinent to the patient complaint. Exam Narrative: Exam Narrative: GENERAL: This is a well-nourished, well-developed patient, in no apparent distress. HEAD: normocephalic, atraumatic. EYES: PERRL. Sclera clear/white. Vision is grossly intact. EARS: External ears normal NOSE: External nose normal with no obvious nasal discharge, nares without redness, no rhinorrhea. THROAT: Mucous membranes moist NECK: Neck supple CARDIOVASCULAR: Regular rat
[2021-04-03 11:06] VITALS: BP 118/82; PULSE 98; RESP 16; TEMP 36.6; O2SAT 100
== END 2021-04-03 11:31 | disposition home or self-care (01) ==
PROVIDERS: Emergency Provider Nurse Practitioner Family; PCP Family Medicine
DX: K59.00 Constipation, unspecified (principal); F17.210 Nicotine dependence, cigarettes, uncomplicated; E11.9 Type 2 diabetes mellitus without complications; I10 Essential (primary) hypertension; E78.00 Pure hypercholesterolemia, unspecified; I25.2 Old myocardial infarction; Z95.5 Presence of coronary angioplasty implant and graft
CPT/HCPCS: 74018; 99213; G0463

== ENCOUNTER 2021-07-22 06:46 | Emergency (ER) | payer OTHER, SELFPAY ==
[2021-07-22 07:18] LABS: Glucose Point of Care > 500 mg/dl (65-105)
[2021-07-22 07:31] LABS: Basophils Absolute Auto 0.1 K/mm3 (0.0-0.1); Eosinophils Absolute Auto 0.4 K/mm3 (0-0.3); Eosinophils Percent Auto 4.4 % (0-4.4); Hematocrit 46.7 % (42.0-52.0); Hemoglobin 15.5 g/dL (14.0-18.0); Immature Granulocyte Absolute 0.03 K/mm3 (0.00-0.031); Immature Granulocyte Percent A 0.3 % (0-0.5); Lymphocytes Absolute Auto 1.71 K/mm3 (0.9-3.2); Lymphocytes Percent Auto 19.3 % (18.3-44.2); Mean Corpuscular HGB Conc 33.2 g/dl (32-36); Mean Corpuscular Volume 90.5 fl (80-100); Mean Platelet Volume 10.7 fl (7.4-10.4); Monocytes Absolute Auto 0.4 K/mm3 (0.1-0.6); Neutrophils Absolute Auto 6.2 K/mm3 (1.3-6.7); Platelet Count Result 350 k/mm3 (150-375); Red Blood Count 5.16 M/mm3 (4.6-6.20); Red Cell Distribution Width 11.9 % (11.5-14.5); White Blood Count 8.9 K/mm3 (4.5-10.0)
--- NOTE | 2021-07-22 07:31 | ED.RECABL ---
HPI - Recheck/Abnormal Lab/Rx General Chief Complaint: Recheck/Abnormal Lab/Rx Stated Complaint: blood sugar high Time Seen by Provider: 07/22/21 07:24 Source: RN notes reviewed History of Present Illness HPI narrative: Patient presents emergency department from home for hypoglycemia. Patient states he woke up this morning checked his blood sugar and it read high and came to emergency department for further evaluation he states that recently his blood sugars been running high in the morning and then he will take his insulin and then by the afternoon the bottom out and have episodes of hypoglycemia he states that he has had mild nausea but denies any vomiting he denies any fevers or chills chest pain shortness of breath or any other symptoms states did not take any insulin this morning but has been taking his insulin regularly Related Data Home Medications Medication Instructions Recorded Confirmed polyethylene glycol 3350 [Miralax] 17 g PO DAILY 04/03/21 06/28/21 famotidine 10 mg tablet 10 mg PO DAILY 06/28/21 06/28/21 Allergies Allergy/AdvReac Type Severity Reaction Status Date / Time No Known Allergies Allergy Verified 07/22/21 07:04 Review of Systems Review of Systems: Gen.: Denies fevers or chills ENT: Denies congestion Respiratory: Denies shortness of breath or cough CV: Denies chest pain or palpitations GI: Denies abdominal pain emesis or diarrhea reports nausea denies burning, urgency, frequency or hematuria Musculoskeletal: Denies back pain or muscle pain Neuro: Denies numbness, tingling, weakness or focal weakness Skin: Denies rash Endocrine: Reports hyperglycemia Except as documented, all other systems reviewed and negative [facility] Past Medical History Medical History Abdominal pain History of myocardial infarction due to atherothrombotic coronary artery disease HTN (hypertension) Hypercholesteremia Hyperlipidemia due to type 1 diabetes mellitus Hypokalemia Marijuana use Myocardial infarct, old Nicotine addiction Seizure Type 1 diabetes mellitus with hyperglycemia Viral infection Surgical History Surgical History H/O heart artery stent Family History Family History Father , Meth overdose Diabetes mellitus Mother Hypertension Social History Social History Smoking packs per day: 1 Smoking cigarettes per day: 20.0 Years smoked: 8 Smoking pack-years: 8.00 Smoking status: Current every day smoker Tobacco type: cigarettes Second hand tobacco smoke exposure: Yes Alcohol intake: never Substance use: current Substance use type: marijuana Gender identity (if verbalized by the patient): Male Sexual Orientation (if Verbalized by the Patient): Straight or Heterosexual Exam Narrative: APPEARANCE: No acute distress, nontoxic, resting in bed EYES: EOMI HEENT: Normocephalic, atraumatic, OMM RESPIRATORY: No respiratory distress Clear to auscultation bilaterally with no rhonchi wheezing or rales. CARDIOVASCULAR: Regular rate and rhythm without murmurs rubs or gallops. ABDOMINAL: Soft, nontender, nondistended, no rebound or guarding MUSCULOSKELETAl: Moves all extremities. No clubbing, cyanosis or edema. NEURO: Awake and alert. Following commands, speech normal, no focal deficits SKIN:: Warm, dry. No rashes lesions or abrasions PSYCHIATRIC: Normal affect/mood, Course Course Emergency Course: Discussed with hospital service at this time with patient not in DKA with no anion gap felt that he can receive IV insulin with discharge following improvement of blood sugars Instructed by nursing staff the patient is wishing to leave AMA when discussed with the patient he states he wanted some fluids he states that he is feeling better discussed with him his elevate
[2021-07-22 07:34] LABS: Add Urine Microscopic? YES; Appearance Urine Clear (Clear); Bilirubin Urine Negative (Negative); Blood Urine Negative (Negative); Color Urine Colorless (Yellow); Glucose Urine UA 3+ mg/dL (Negative); Ketones Urine 1+ mg/dL (Negative); Leukocyte Esterase Ur Negative LEU/UL (Negative); Nitrate Urine Negative (Negative); Protein Urine Negative (Negative); Specific Grav Ur 1.028 (1.001-1.035); Urobilinogen Urine Negative mg/dL (<2.0)
[2021-07-22] MEDS: SODIUM CHLORIDE 0.9% IV 1,000 ML 999 ML IV CONT (07:42)
[2021-07-22 07:46] VITALS: BP 133/81; PULSE 71; RESP 10; O2SAT 100
[2021-07-22 07:46] LABS: Alanine Aminotransferase 45 U/L (4-50); Albumin Level 4.7 g/dL (3.5-5.1); Alkaline Phosphatase 126 U/L (38-126); Anion Gap 12 mmol/L (8-16); Aspartate Amino Transferase 30 U/L (17-59); Bilirubin,Total 0.6 mg/dL (0.2-1.3); Blood Urea Nitrogen 26 mg/dL (9-20); Calcium 9.5 mg/dL (8.4-10.2); Carbon Dioxide 25 mmol/L (22-30); Chloride 93 mmol/L (98-107); Estimated CRCL calculation 119 ml/min; Estimated Glomerular Filt Rate > 60; Magnesium 1.8 mg/dL (1.6-2.3); Phosphorus 4.6 mg/dL (2.5-4.5); Potassium 4.9 mmol/L (3.4-5.0); Sodium 130 mmol/L (137-145)
[2021-07-22 07:53] LABS: Glucose 685 mg/dL (65-110)
[2021-07-22 08:02] VITALS: BP 125/81; PULSE 74; RESP 19; O2SAT 99
[2021-07-22 08:17] VITALS: BP 127/77; PULSE 77; RESP 15; O2SAT 98
[2021-07-22 08:32] VITALS: BP 123/71; PULSE 79; RESP 16; O2SAT 99
[2021-07-22 09:01] VITALS: BP 124/82; PULSE 78; RESP 18; O2SAT 100
[2021-07-22 09:02] LABS: Beta-Hydroxybutyrate/Acetoacetate 1.64 mmol/L (0.02-0.27)
== END 2021-07-22 09:15 | disposition left against medical advice (07) ==
PROVIDERS: Emergency Medicine; Emergency Provider Emergency Medicine; PCP Family Medicine
DX: E10.65 Type 1 diabetes mellitus with hyperglycemia (principal); I25.2 Old myocardial infarction; I25.10 Atherosclerotic heart disease of native coronary artery without angina pectoris; I10 Essential (primary) hypertension; E78.5 Hyperlipidemia, unspecified; Z79.4 Long term (current) use of insulin; F17.210 Nicotine dependence, cigarettes, uncomplicated
CPT/HCPCS: 36415; 80053; 81001; 82010; 82948; 83735; 84100; 85025; 96360; 99283; J7030

== ENCOUNTER 2021-08-18 09:56 | Emergency (ER) | payer OTHER, SELFPAY ==
--- NOTE | ~2021-08-18 | XR_ITS ---
EXAMINATION: XR wrist RT 2V DATE: 08/18/2021 10:54 INDICATION: Right wrist injury and pain. TECHNIQUE: 4 views of right wrist were obtained. COMPARISON: None. FINDINGS: Bone alignment is normal. No fracture. Joint spaces are well maintained. IMPRESSION: 1. Normal right wrist. Reviewed, dictated and finalized at location A. IMPRESSION: 1. Normal right wrist.
--- NOTE | ~2021-08-18 | XR_ITS ---
EXAMINATION: XR hand RT min 3V DATE: 08/18/2021 10:54 INDICATION: Right hand injury and pain. TECHNIQUE: 3 views of right hand were obtained. COMPARISON: None. FINDINGS: Bone alignment is normal. No fracture. Joint spaces are well maintained. There is posterior hand soft tissue swelling. IMPRESSION: 1. No fracture. Reviewed, dictated and finalized at location A. IMPRESSION: 1. No fracture.
[2021-08-18 10:05] VITALS: BP 119/78; PULSE 102; RESP 18; TEMP 36.4; O2SAT 99
--- NOTE | 2021-08-18 10:48 | PC.NURSE ---
telfa and gauze dressing applied to right hand. right hand ^ and ice applied
[2021-08-18] MEDS: IBUPROFEN 400 MG TABLET 800 MG PO (11:20)
--- NOTE | 2021-08-18 11:20 | ED.UPPEXIN ---
HPI - Extremity Injury (Upper) General Chief Complaint: Extremity Injury, Upper Stated Complaint: rt hand injury Time Seen by Provider: 08/18/21 09:58 Source: patient and RN notes reviewed Mode of arrival: ambulatory Limitations: no limitations History of Present Illness complaint: injury to: right, wrist and hand Onset (ago): hour(s) (3) Other Extremity Injury: Right: hand and wrist Other injuries: none Place: home Severity: mild Severity scale (1-10): 6 Relieving factors: medication Exacerbating factors: movement of extremity Related Data Home Medications Medication Instructions Recorded Confirmed gabapentin 100 mg PO DAILY PRN 08/18/21 08/18/21 insulin glargine [Lantus U-100 28 unit SUBCUT QPM 08/18/21 08/18/21 Insulin] Allergies Allergy/AdvReac Type Severity Reaction Status Date / Time No Known Allergies Allergy Verified 08/18/21 10:46 Review of Systems Review of Systems: All systems reviewed & are unremarkable except as noted in HPI and below Musculoskeletal: Musculoskeletal: Reports arthralgias PMFSH Past Medical History Medical History Abdominal pain History of myocardial infarction due to atherothrombotic coronary artery disease HTN (hypertension) Hypercholesteremia Hyperlipidemia due to type 1 diabetes mellitus Hypokalemia Marijuana use Myocardial infarct, old Nicotine addiction Seizure Type 1 diabetes mellitus with hyperglycemia Viral infection Surgical History Surgical History H/O heart artery stent Family History Family History Father , Meth overdose Diabetes mellitus Mother Hypertension Social History Social History Smoking packs per day: 1 Smoking cigarettes per day: 20.0 Years smoked: 8 Smoking pack-years: 8.00 Smoking status: Current every day smoker Tobacco type: cigarettes Second hand tobacco smoke exposure: Yes Alcohol intake: never Substance use: current Substance use type: marijuana Gender identity (if verbalized by the patient): Male Sexual Orientation (if Verbalized by the Patient): Straight or Heterosexual Exam Const: General: no acute distress Nutritional Appearance: well nourished Orientation/consciousness: patient oriented x3 Limitations: no limitations HENMT: Head: normal to inspection General nose exam: Normal external nose present and Normal nares present Mouth: Yes lip normal, Yes moist mucous membranes and No dry mucous membranes Teeth and gingiva: dentition normal Eyes: Conjunctivae: conjunctivae normal Pupils: Equal, round and reactive pupils present EOM: EOMs intact bilaterally Neck: Neck: normal visual inspection and no lymphadenopathy Chest: Chest palpation & inspection: normal inspection of the chest Resp: Effort & Inspection: normal respiratory effort Auscultation: clear to auscultation bilaterally Cardio: Rate: regular rate Rhythm: regular rhythm GI: GI Palp: Yes Soft to palpation and No Tenderness to palpation present (GI) Percussion: Yes normal to percussion Auscultation: normal bowel sounds : General: Yes bladder normal to palpation and Yes no CVA tenderness Male General Exam: Yes normal external exam Testes: Testes normal Back/Spine/Pelvis: Back: no CVA tenderness Skin: General skin exam: normal color Rashes: no rashes Neuro: General: patient oriented x3, moves all extremities, no meningeal signs, no focal motor deficits and CN's II-XI intact bilaterally Extrem: General: abnormal to inspection Other: dorsal right hand multiple abrasions with no acute swelling, redness or deformity. full ROM right hand. Psych: Appearance: grossly normal and well kempt Mental Status: mental status grossly normal Affect: normal affect Attitude: cooperative Thought content: Y
[2021-08-18 11:34] VITALS: BP 115/72; PULSE 84; RESP 16; TEMP 36.4; O2SAT 98
== END 2021-08-18 11:38 | disposition home or self-care (01) ==
PROVIDERS: Emergency Provider Emergency Medicine; PCP Nurse Practitioner Family
DX: S60.511A Abrasion of right hand, initial encounter (principal); S60.221A Contusion of right hand, initial encounter
CPT/HCPCS: 73100; 73130; 99283; A9270

== ENCOUNTER 2021-08-21 19:57 | Emergency (ER) | payer OTHER, SELFPAY ==
--- NOTE | ~2021-08-21 | CT_ITS ---
EXAMINATION: CT abdomen pelvis w con DATE: 08/21/2021 21:36 INDICATION: Central abdominal pain, nausea and vomiting TECHNIQUE: Computed tomography (CT) of the abdomen and pelvis was performed with 100 cc Omnipaque 350 intravenous contrast. Automated exposure control and iterative reconstruction technique were employe d. Exam dose: 246.73 mGy-cm total exam DLP. COMPARISON: 04/03/2021 KUB FINDINGS: The lung bases are clear. Normal heart size. No pericardial or pleural effusion. The liver, gallbladder, spleen, pancreas, bile ducts and pancreatic duct are unremarkable. Normal morphology of the adrenal glands. No renal mass lesion or urinary tract calculus or hydroureteronephrosis. The urinary bladder is unrem arkable. Normal appendix. There is a prominent amount of fecal material within the rectum and left colon. Normal caliber of the abdominal aorta. No intraperitoneal or retroperitoneal or pelvic mass lesion or adenopathy or ascites. Included skeletal structures are unremarkable other than some Schmorl's nodes of the thoracic and lum bar spine. IMPRESSION: Normal appendix Prominent fecal material in the rectum and left colon Reviewed, dictated and finalized at Location A. Reviewed, dictated and finalized at location A.
--- NOTE | ~2021-08-21 | XR_ITS ---
XR chest 2V DATE: 08/21/2021 21:35 INDICATION: Shortness of breath TECHNIQUE: 2 views COMPARISON: 03/02/2021 2 view chest FINDINGS: Normal heart size. No hilar or mediastinal enlargement. Bilateral hyperinflation. No pulmonary infiltrate or consolidation, pleural effusion or pulmonary vas cular congestion or pneumothorax. IMPRESSION: Bilateral hyperinflation; no active cardiopulmonary disease Reviewed, dictated and finalized at location A.
[2021-08-21 20:00] VITALS: BP 119/78; PULSE 100; RESP 20; TEMP 36.4; O2SAT 99
--- NOTE | 2021-08-21 20:07 | ECG_ITS ---
Measurements Intervals [place] Rate: 103 P: 66 NE: 142 QRS: 30 QRSD: 91 T: 19 QT: 339 QTc: 445 Interpretive Statements SINUS TACHYCARDIA NONSPECIFIC T-WAVE ABNORMALITY- INFERIOR LEADS BASELINE ARTIFACT- II, III BORDERLINE ECG Electronically Signed On 08-22-2021 8:08:45 CDT by Coy Bhat D.O.
[2021-08-21] MEDS: PANTOPRAZOLE SODIUM IV 40 MG VIAL IV PUSH (20:25)
[2021-08-21] MEDS: ONDANSETRON INJ 4 MG/2 ML VIAL IV PUSH (20:28)
[2021-08-21 20:31] LABS: Basophils Absolute Auto 0.08 K/mm3 (0.00-0.10); Basophils Percent Auto 1.1 % (0.0-1.0); Eosinophils Absolute Auto 0.06 K/mm3 (0.02-0.50); Eosinophils Percent Auto 0.8 % (1.0-6.0); Hematocrit 45.1 % (40.0-54.0); Hemoglobin 14.7 g/dL (14.0-18.0); Immature Granulocyte Absolute 0.04 K/mm3 (0.00-0.00); Immature Granulocyte Percent A 0.5 % (0.0-0.0); Lymphocytes Absolute Auto 1.25 K/mm3 (1.10-4.50); Lymphocytes Percent Auto 16.9 % (18.0-42.0); Mean Corpuscular HGB Conc 32.6 g/dL (32.0-36.0); Mean Platelet Volume 10.1 fl (8.7-11.0); Monocytes Absolute Auto 0.39 K/mm3 (0.10-0.90); Monocytes Percent Auto 5.3 % (2.0-11.0); Neutrophils Absolute Auto 5.6 K/mm3 (1.7-7.2); Neutrophils Percent Auto 75.4 % (50.0-70.0); Platelet Count Result 382 K/mm3 (150-420); Red Blood Count 5.07 M/mm3 (4.70-6.10); Red Cell Distribution Width 11.9 % (11.6-14.4); White Blood Count 7.4 K/mm3 (4.8-10.8)
[2021-08-21 20:41] LABS: Glucose Point of Care 312 mg/dl (65-105)
[2021-08-21] MEDS: SODIUM CHLORIDE 0.9% IV 1,000 ML 999 ML IV CONT (20:45)
[2021-08-21 20:52] LABS: Add Urine Microscopic? YES; Appearance Urine Clear (Clear); Bilirubin Urine Negative (Negative); Blood Urine Negative (Negative); Color Urine Light Yellow (Yellow); Glucose Urine UA 3+ (Negative); Ketones Urine 3+ (Negative); Leukocyte Esterase Ur Negative (Negative); Nitrate Urine Negative (Negative); Protein Urine Negative (Negative); Specific Grav Ur 1.025 (1.010-1.020); Urobilinogen Urine 0.2 mg/dL (0.2-1.0); pH Urine 5.5 (5.0-8.0)
[2021-08-21 20:52] LABS: Lactic Acid Reflex 7.7 mmol/L (0.4-2.0)
[2021-08-21 20:57] LABS: RBC Urine 0-2 /hpf (0-2); WBC Urine 0-3 /hpf (0-3)
[2021-08-21 20:58] LABS: Bacteria Urine Trace /hpf
[2021-08-21 20:58] LABS: Albumin Level 3.8 g/dL (3.4-5.0); Alkaline Phosphatase 126 U/L (46-116); Anion Gap 24 mmol/L (8-16); Aspartate Amino Transferase 62 U/L (15-37); Bilirubin,Total 0.6 mg/dL (0.00-1.00); Blood Urea Nitrogen 18 mg/dL (7-18); Calcium 9.1 mg/dL (8.5-10.1); Carbon Dioxide 16 mmol/L (21-32); Chloride 100 mmol/L (98-108); Estimated CRCL calculation 48 ml/min; Estimated Glomerular Filt Rate 50; Magnesium 2.3 mg/dL (1.8-2.4); Osmolality Calculated 311 mOsm/kg (285-295); Phosphorus 3.4 mg/dL (2.6-4.7); Sodium 140 mmol/L (136-145); Total Protein 7.7 g/dL (6.4-8.2)
[2021-08-21 20:59] LABS: Glucose 462 mg/dL (70-99)
[2021-08-21 21:07] LABS: Lipase 150 U/L (73-393); Troponin I 5.1 ng/L (0.00-60.4)
[2021-08-21 21:18] LABS: Alanine Aminotransferase 87 U/L (16-63)
--- NOTE | 2021-08-21 21:20 | ED.NAVMDI ---
HPI - Nausea/Vomiting/Diarrhea General Chief complaint: Nausea/Vomiting/Diarrhea Stated complaint: AMB Source: patient and EMS Mode of arrival: EMS Limitations: no limitations History of Present Illness HPI Narrative: this is a 26-year-old patient male that presents via EMS with nausea with vomiting for the last day or 2 has been off and on worse when he tries to speak has been having diffuse abdominal pain mild that is been going on for months has a history of reflux disease history of diabetes type 1 on insulin. The patient has had chills with no fevers no chest pain no shortness of breath no dysuria no flank pain. Patient has a history of atherosclerotic heart disease with stents placed currently no chest pain no shortness of breath. MD elicited complaint: nausea, vomiting and abdominal pain Onset (ago): day(s) Description of vomiting: watery Associated abdominal pain: Yes Location of pain: diffuse Radiation: diffuse Pain consistency: constant Severity: moderate Quality: cramping and aching Exacerbating factors: none Relieving factors: none Related Data Home Medications Medication Instructions Recorded Confirmed insulin glargine [Lantus U-100 40 unit SUBCUT QPM 08/18/21 08/21/21 Insulin] metoprolol tartrate 25 mg PO DAILY 08/21/21 08/21/21 Allergies Allergy/AdvReac Type Severity Reaction Status Date / Time No Known Allergies Allergy Verified 08/21/21 06:52 Review of Systems Review of Systems: All systems reviewed & are unremarkable except as noted in HPI and below PMFSH Past Medical History Medical History Abdominal pain History of myocardial infarction due to atherothrombotic coronary artery disease HTN (hypertension) Hypercholesteremia Hyperlipidemia due to type 1 diabetes mellitus Hypokalemia Marijuana use Myocardial infarct, old Nicotine addiction Seizure Type 1 diabetes mellitus with hyperglycemia Viral infection Surgical History Surgical History H/O heart artery stent Family History Family History Father , Meth overdose Diabetes mellitus Mother Hypertension Social History Social History Smoking packs per day: 1 Smoking cigarettes per day: 20.0 Years smoked: 8 Smoking pack-years: 8.00 Smoking status: Current every day smoker Tobacco type: cigarettes Second hand tobacco smoke exposure: Yes Alcohol intake: never Substance use: current Substance use type: marijuana Gender identity (if verbalized by the patient): Male Sexual Orientation (if Verbalized by the Patient): Straight or Heterosexual Exam Const: General: no acute distress Orientation/consciousness: patient oriented x3 HENMT: Head: normal to inspection Eyes: Pupils: Equal, round and reactive pupils present EOM: EOMs intact bilaterally Chest: Chest palpation & inspection: normal inspection of the chest Resp: Effort & Inspection: normal respiratory effort Auscultation: clear to auscultation bilaterally Cardio: Rate: regular rate Rhythm: regular rhythm GI: GI Palp: Yes Soft to palpation, Yes Tenderness to palpation present (GI) and Yes Guarding due to palpation present (GI) Urinary Catheter: Urinary Catheter: patent and draining and urine clear Back/Spine/Pelvis: Back: no CVA tenderness Skin: General skin exam: normal color Rashes: no rashes Neuro: General: patient oriented x3 and moves all extremities Extrem: General: normal to inspection and no pedal edema Psych: Mental Status: mental status grossly normal Affect: normal affect and Anxious affect present Attitude: cooperative Course Course Emergency Course: Labs reviewed with patient initial blood sugars were over 400 that was taking by EMS patient received a L of fluids that EMS and started and
[2021-08-21 22:00] VITALS: BP 113/70; PULSE 71; RESP 18; O2SAT 99
[2021-08-21 22:01] LABS: Glucose Point of Care 152 mg/dl (65-105)
[2021-08-21 22:30] VITALS: BP 119/78; PULSE 79; RESP 18; TEMP 36.4; O2SAT 100
[2021-08-21 23:28] LABS: Reflex Lactic Acid Yes or No Add Lactic
== END 2021-08-21 22:37 | disposition home or self-care (01) ==
PROVIDERS: Emergency Provider Emergency Medicine; PCP Nurse Practitioner Family
DX: E10.65 Type 1 diabetes mellitus with hyperglycemia (principal); Z79.899 Other long term (current) drug therapy
CPT/HCPCS: 36415; 71046; 74177; 80053; 81001; 82948; 83605; 83690; 83735; 84100; 84484; 85025; 87040; 93005; 96361; 96374; 96375; 99283; 99284; C9113; J2405; J7030; Q9967

== ENCOUNTER 2021-09-02 10:17 | Emergency (ER) | payer OTHER, SELFPAY ==
[2021-09-02 10:48] VITALS: BP 120/82; PULSE 114; RESP 20; TEMP 37.7; O2SAT 98
--- NOTE | 2021-09-02 11:26 | ED.GENADULT ---
HPI - General Adult General Chief complaint: Nausea/Vomiting/Diarrhea Stated complaint: pain all over body History of Present Illness HPI narrative: patient not seen by me left without being seen Related Data Home Medications Medication Instructions Recorded Confirmed insulin glargine [Lantus U-100 30 unit SUBCUT QPM 08/18/21 09/02/21 Insulin] gabapentin 100 mg PO TID PRN 09/02/21 09/02/21 Allergies Allergy/AdvReac Type Severity Reaction Status Date / Time No Known Allergies Allergy Verified 08/30/21 09:30 [facility] Past Medical History Medical History Abdominal pain History of myocardial infarction due to atherothrombotic coronary artery disease HTN (hypertension) Hypercholesteremia Hyperlipidemia due to type 1 diabetes mellitus Hypokalemia Marijuana use Myocardial infarct, old Nicotine addiction Seizure Type 1 diabetes mellitus with hyperglycemia Viral infection Surgical History Surgical History H/O heart artery stent Family History Family History Father , Meth overdose Diabetes mellitus Mother Hypertension Social History Social History Smoking packs per day: 1 Smoking cigarettes per day: 20.0 Years smoked: 8 Smoking pack-years: 8.00 Smoking status: Current every day smoker Tobacco type: cigarettes Second hand tobacco smoke exposure: Yes Alcohol intake: never Substance use: current Substance use type: marijuana Gender identity (if verbalized by the patient): Male Sexual Orientation (if Verbalized by the Patient): Straight or Heterosexual Course Vital Signs Vital signs: Vital Signs Temperature 37.7 C H 09/02/21 10:48 Pulse Rate 114 H 09/02/21 10:48 Respiratory Rate 20 09/02/21 10:48 Blood Pressure 120/82 09/02/21 10:48 Pulse Oximetry 98 09/02/21 10:48 Temperature 37.7 C H 09/02/21 10:48 Pulse Rate 114 H 09/02/21 10:48 Respiratory Rate 20 09/02/21 10:48 Blood Pressure 120/82 09/02/21 10:48 Pulse Oximetry 98 09/02/21 10:48 Medical Decision Making Vital Signs Vital Signs: Vital Signs Temperature 37.7 C H 09/02/21 10:48 Pulse Rate 114 H 09/02/21 10:48 Respiratory Rate 20 09/02/21 10:48 Blood Pressure 120/82 09/02/21 10:48 Pulse Oximetry 98 09/02/21 10:48 Temperature 37.7 C H 09/02/21 10:48 Pulse Rate 114 H 09/02/21 10:48 Respiratory Rate 20 09/02/21 10:48 Blood Pressure 120/82 09/02/21 10:48 Pulse Oximetry 98 09/02/21 10:48 Discharge Plan Discharge Prescriptions: No Action Lantus U-100 Insulin 100 unit/mL solution 30 unit SUBCUT QPM RF: 0 gabapentin 100 mg capsule 100 mg PO TID PRN (Reason: Pain) RF: 0 insulin lispro [Humalog U-100 Insulin] 100 unit/mL solution 1 sliding scale dose SUBCUT USEASDIRECTD Qty: 30 RF: 3 lovastatin 10 mg tablet 10 mg PO QPM Qty: 90 RF: 1 (DME) Dexcom G6 Value Engineer Misc See Rx Instructions .Route Qty: 1 RF: 0 (DME) Dexcom G6 Sensor Device See Rx Instructions .Route Qty: 3 RF: 2 (DME) Dexcom G6 Transmitter Device See Rx Instructions .Route Qty: 1 RF: 0
== END 2021-09-02 11:10 | disposition left against medical advice (07) ==
PROVIDERS: Emergency Provider Emergency Medicine; PCP Nurse Practitioner Family
DX: R11.2 Nausea with vomiting, unspecified (principal); Z53.8 Procedure and treatment not carried out for other reasons
CPT/HCPCS: 99199

== ENCOUNTER 2021-09-07 17:08 | Emergency (ER) | payer OTHER, SELFPAY ==
[2021-09-07 17:28] VITALS: BP 140/105; PULSE 92; RESP 20; TEMP 37.2; O2SAT 98
--- NOTE | 2021-09-07 17:31 | ED.GENADULT ---
HPI - General Adult General Chief complaint: Unspecified Stated complaint: PAIN FROM SURGERY Source: patient and family Mode of arrival: ambulatory Limitations: no limitations History of Present Illness HPI narrative: this is a 26-year-old male that presents with pain status post cholecystectomy approximately 2 days ago patient was sent home and sent home with [facility] but the patient has run out does have an appoint with his primary in the morning, but his pain level has increased otherwise his abdomen is soft mildly tender with no fever chills no drainage from incision sites with no shortness of breath no fever chills no chest pain no dysuria. Onset (ago): day(s) Radiation: abdomen ( status post cholecystectomy) Severity: moderate Severity scale (1-10): 6 Quality: aching Pain Consistency: intermittent Relieving factors: medication Exacerbating factors: none Associated symptoms: denies other symptoms Related Data Home Medications Medication Instructions Recorded Confirmed insulin glargine [Lantus U-100 30 unit SUBCUT QPM 08/18/21 09/02/21 Insulin] gabapentin 100 mg PO TID PRN 09/02/21 09/02/21 Allergies Allergy/AdvReac Type Severity Reaction Status Date / Time No Known Allergies Allergy Verified 08/30/21 09:30 Review of Systems Review of Systems: All systems reviewed & are unremarkable except as noted in HPI and below PMFSH Past Medical History Medical History Abdominal pain History of myocardial infarction due to atherothrombotic coronary artery disease HTN (hypertension) Hypercholesteremia Hyperlipidemia due to type 1 diabetes mellitus Hypokalemia Marijuana use Myocardial infarct, old Nicotine addiction Seizure Type 1 diabetes mellitus with hyperglycemia Viral infection Surgical History Surgical History H/O heart artery stent Family History Family History Father , Meth overdose Diabetes mellitus Mother Hypertension Social History Social History Smoking packs per day: 1 Smoking cigarettes per day: 20.0 Years smoked: 8 Smoking pack-years: 8.00 Smoking status: Current every day smoker Tobacco type: cigarettes Second hand tobacco smoke exposure: Yes Alcohol intake: never Substance use: current Substance use type: marijuana Gender identity (if verbalized by the patient): Male Sexual Orientation (if Verbalized by the Patient): Straight or Heterosexual Exam Const: General: cooperative, healthy appearing, no acute distress, well developed, alert, awake and Physically active HENMT: Head: normal to inspection Ears: hearing grossly normal bilaterally General nose exam: Normal external nose present Face and sinus: normal facial exam Mouth: Yes Normal oral and palatal mucosa present Throat: posterior oropharynx normal Eyes: General: appearance normal, both eyes and all related structures EOM: EOMs intact bilaterally Neck: Neck: normal visual inspection, full ROM, no lymphadenopathy and no meningeal signs Chest: Chest palpation & inspection: normal inspection of the chest and normal palpation of entire chest wall Resp: Effort & Inspection: normal respiratory effort and able to speak in complete sentences Auscultation: clear to auscultation bilaterally Percussion: percussion normal Cardio: Jugular venous distension: no JVD Palpation: normal PMI Rate: regular rate Rhythm: regular rhythm GI: Abdomen image: 1. Incision sites look normal with no drainage no redness no erythema. Back/Spine/Pelvis: Back: no CVA tenderness Cervical Spine: normal cervical lordosis and cervical ROM normal Neuro: General: oriented to person, oriented to place and oriented to time Psych: Appearance: grossly normal and well kempt Course Course Emergenc
[2021-09-07] MEDS: KETOROLAC (*BKC) 60 MG/2 ML VIAL IM (17:52)
[2021-09-07 18:25] VITALS: PULSE 88; RESP 20; O2SAT 98
== END 2021-09-07 18:26 | disposition home or self-care (01) ==
PROVIDERS: Emergency Provider Emergency Medicine; PCP Nurse Practitioner Family
DX: Z98.890 Other specified postprocedural states (principal); R10.9 Unspecified abdominal pain
CPT/HCPCS: 96372; 99283; J1885

== ENCOUNTER 2021-09-12 11:56 | Outpatient (NON) | payer OTHER, SELFPAY | END 2021-09-12 11:57 | disposition home or self-care (01) | LOC: CHSLAB 11:57 | PROVIDERS: Visit Provider Nurse Practitioner Family | DX: R39.12 Poor urinary stream (principal); R30.0 Dysuria | CPT/HCPCS: 87210; 87491; 87591; 87661 ==

== ENCOUNTER 2021-10-23 10:47 | Emergency (ER) | payer OTHER, SELFPAY ==
--- NOTE | ~2021-10-23 | CT_ITS ---
EXAMINATION: CT abdomen pelvis w con DATE: 10/23/2021 12:38 INDICATION: Abdominal pain. Nausea, vomiting, and diarrhea. TECHNIQUE: Computed tomography (CT) of the abdomen and pelvis was performed with 100 mL Omnipaque 350 intravenous contrast. Automated exposure control and iterative reconstruction technique were employe d. The dose-length product was 237.11 mGy-cm. COMPARISON: CT abdomen and pelvis 08/21/2021 FINDINGS: The visualized portions of the lung bases are clear without pneumonia or pleural effusion. The heart size is normal. No pericardial effusion. The liver is normal. The gallbladder is absent. Th e spleen, pancreas, adrenal glands, and kidneys are normal. There are no dilated loops of bowel. The appendix is normal. There is periumbilical fat stranding. There are no pathologically enlarged lymph nodes. There is no free intraperitoneal fluid. There are Schmorl's nodes at multiple levels in the sp ine. IMPRESSION: 1. Periumbilical fat stranding, consistent with inflammation. This was likely a port site from the re cent cholecystectomy. Reviewed, dictated and finalized at location A. GHT DISPATCHER IMPRESSION: 1. Periumbilical fat stranding, consistent with inflammation. This was likely a port site from the recent cholecystectomy.
[2021-10-23 10:57] VITALS: BP 139/102; PULSE 117; RESP 20; TEMP 36.1; O2SAT 99
[2021-10-23 11:58] LABS: Eosinophils Absolute Auto 0.14 K/mm3 (0.02-0.50); Eosinophils Percent Auto 1.4 % (1.0-6.0); Hematocrit 45.6 % (40.0-54.0); Hemoglobin 14.7 g/dL (14.0-18.0); Lymphocytes Absolute Auto 1.25 K/mm3 (1.10-4.50); Lymphocytes Percent Auto 12.8 % (18.0-42.0); Mean Corpuscular HGB Conc 32.2 g/dL (32.0-36.0); Mean Corpuscular Hemoglobin 28.9 pg (27.0-31.0); Mean Corpuscular Volume 89.8 fL (78.0-102.0); Mean Platelet Volume 9.8 fl (8.7-11.0); Monocytes Absolute Auto 0.31 K/mm3 (0.10-0.90); Monocytes Percent Auto 3.2 % (2.0-11.0); Neutrophils Absolute Auto 7.9 K/mm3 (1.7-7.2); Neutrophils Percent Auto 80.6 % (50.0-70.0); Platelet Count Result 410 K/mm3 (150-420); Red Blood Count 5.08 M/mm3 (4.70-6.10); Red Cell Distribution Width 13.2 % (11.6-14.4); White Blood Count 9.8 K/mm3 (4.8-10.8)
[2021-10-23] MEDS: ONDANSETRON INJ 4 MG/2 ML VIAL IV PUSH (12:05)
[2021-10-23] MEDS: SODIUM CHLORIDE 0.9% IV 1,000 ML 999 ML IV CONT (12:05)
[2021-10-23 12:13] LABS: Alanine Aminotransferase 65 U/L (16-63); Albumin Level 3.6 g/dL (3.4-5.0); Alkaline Phosphatase 166 U/L (46-116); Anion Gap 18 mmol/L (8-16); Aspartate Amino Transferase 27 U/L (15-37); Bilirubin,Total 0.6 mg/dL (0.00-1.00); Blood Urea Nitrogen 18 mg/dL (7-18); Carbon Dioxide 21 mmol/L (21-32); Chloride 104 mmol/L (98-108); Estimated CRCL calculation 65 ml/min; Estimated Glomerular Filt Rate > 60; Glucose 367 mg/dL (70-99); Lipase 89 U/L (73-393); Osmolality Calculated 312 mOsm/kg (285-295); Sodium 143 mmol/L (136-145); Total Protein 7.6 g/dL (6.4-8.2)
[2021-10-23 12:16] LABS: Lactic Acid Reflex 3.9 mmol/L (0.4-2.0)
[2021-10-23 13:18] LABS: Glucose Point of Care 221 mg/dl (65-105)
[2021-10-23 13:32] LABS: Add Urine Microscopic? YES; Appearance Urine Clear (Clear); Bilirubin Urine 1+ (Negative); Blood Urine Negative (Negative); Color Urine Light Yellow (Yellow); Glucose Urine UA 3+ (Negative); Ketones Urine 3+ (Negative); Leukocyte Esterase Ur Negative LEU/UL (Negative); Nitrate Urine Negative (Negative); Protein Urine Negative (Negative); Specific Grav Ur 1.015 (1.010-1.020); Urobilinogen Urine 0.2 mg/dL (0.2-1.0); pH Urine 5.5 (5.0-8.0)
[2021-10-23 13:40] LABS: RBC Urine None seen /hpf (0-2)
[2021-10-23 13:41] LABS: Bacteria Urine Trace /hpf; Squamous Epithelial Cell Urine Rare /hpf (Few); WBC Urine None seen /hpf (0-3)
--- NOTE | 2021-10-23 13:54 | ED.NAVMDI ---
HPI - Nausea/Vomiting/Diarrhea General Chief complaint: Nausea/Vomiting/Diarrhea Stated complaint: ambulance Time Seen by Provider: 10/23/21 10:49 Source: patient and RN notes reviewed Mode of arrival: ambulatory Limitations: no limitations History of Present Illness MD elicited complaint: nausea, vomiting, diarrhea and abdominal pain Pertinent past history: abdominal surgery Onset (ago): day(s) (1) Description of vomiting: food contents and watery Description of diarrhea: watery Associated nausea: Yes Associated abdominal pain: Yes Location of pain: diffuse Radiation: does not radiate Pain consistency: constant Severity: mild Pain scale (0-10): 3 Quality: cramping, aching and dull Exacerbating factors: bowel movement and vomiting Relieving factors: none Associated symptoms: nausea/vomiting Related Data Home Medications Medication Instructions Recorded Confirmed insulin glargine [Lantus U-100 30 unit SUBCUT QPM 08/18/21 10/23/21 Insulin] aspirin [Baby Aspirin] 81 mg PO DAILY 10/23/21 10/23/21 Allergies Allergy/AdvReac Type Severity Reaction Status Date / Time No Known Allergies Allergy Verified 10/23/21 11:13 Review of Systems Review of Systems: All systems reviewed & are unremarkable except as noted in HPI and below Gastrointestinal: Gastrointestinal: Reports abdominal pain, Reports diarrhea, Reports nausea and Reports vomiting PMFSH Past Medical History Medical History Abdominal pain History of myocardial infarction due to atherothrombotic coronary artery disease HTN (hypertension) Hypercholesteremia Hyperlipidemia due to type 1 diabetes mellitus Hypokalemia Marijuana use Myocardial infarct, old Nicotine addiction Seizure Type 1 diabetes mellitus with hyperglycemia Viral infection Surgical History Surgical History H/O heart artery stent History of cholecystectomy Family History Family History Father , Meth overdose Diabetes mellitus Mother Hypertension Social History Social History Smoking packs per day: 1 Smoking cigarettes per day: 20.0 Years smoked: 8 Smoking pack-years: 8.00 Smoking status: Current every day smoker Tobacco type: cigarettes Second hand tobacco smoke exposure: Yes Alcohol intake: never Substance use: current Substance use type: marijuana Gender identity (if verbalized by the patient): Male Sexual Orientation (if Verbalized by the Patient): Straight or Heterosexual Exam Const: General: no acute distress and alert Nutritional Appearance: thin Orientation/consciousness: patient oriented x3 Limitations: no limitations HENMT: Head: normal to inspection Ears: external ears normal and TM's normal bilaterally General nose exam: Normal external nose present and Normal nares present Face and sinus: normal facial exam Mouth: Yes lip normal and Yes moist mucous membranes Teeth and gingiva: dentition normal Eyes: Cornea: corneas normal Pupils: Equal, round and reactive pupils present EOM: EOMs intact bilaterally Neck: Neck: normal visual inspection Chest: Chest palpation & inspection: normal inspection of the chest Resp: Effort & Inspection: normal respiratory effort Auscultation: clear to auscultation bilaterally Cardio: Rate: regular rate Rhythm: regular rhythm GI: GI Palp: Yes Soft to palpation and Yes Tenderness to palpation present (GI) (minimal generalized.) : General: Yes bladder normal to palpation and Yes no CVA tenderness Testes: Testes normal Back/Spine/Pelvis: Back: no CVA tenderness Skin: General skin exam: normal color Rashes: no rashes Neuro: General: moves all extremities, no meningeal signs, no focal motor deficits and CN's II-XI intact bilaterally Extrem: General: normal to i
[2021-10-23 14:25] VITALS: BP 115/81; PULSE 88; RESP 20; TEMP 36.2; O2SAT 98
[2021-10-23 14:56] LABS: Reflex Lactic Acid Yes or No Add Lactic
== END 2021-10-23 14:37 | disposition home or self-care (01) ==
PROVIDERS: Emergency Provider Emergency Medicine; PCP Nurse Practitioner Family
DX: E10.65 Type 1 diabetes mellitus with hyperglycemia (principal); Z79.4 Long term (current) use of insulin; K52.9 Noninfective gastroenteritis and colitis, unspecified; E86.0 Dehydration
CPT/HCPCS: 36415; 74177; 80053; 81001; 82948; 83605; 83690; 85025; 96361; 96365; 96375; 99283; 99284; J0696; J2405; J7030; Q9967

== ENCOUNTER 2021-11-13 17:54 | Inpatient (IN) | payer OTHER, SELFPAY ==
[2021-11-13 17:55] VITALS: BP 127/80; PULSE 119; RESP 16; TEMP 36.6; O2SAT 100
[2021-11-13 18:02] LABS: Glucose Point of Care > 500 mg/dl (65-105)
[2021-11-13 18:40] VITALS: BP 133/93; PULSE 118; RESP 20; O2SAT 99
[2021-11-13 18:42] LABS: Fractional Inspired Oxygen 21 %; HCO3 VBG 11.5 mEq/l (24.0-30.0); PO2 VBG 57.2 mmHg (35.0-45.0)
[2021-11-13 18:45] LABS: Device ROOM AIR; PCO2 VBG 27.5 mmHg (42.0-48.0); pH VBG 7.241 (7.300-7.400)
[2021-11-13] MEDS: HALOPERIDOL LACTATE 5 MG/ML VIAL IV PUSH (18:46)
[2021-11-13] MEDS: PANTOPRAZOLE SODIUM IV 40 MG VIAL IV PUSH (18:46)
[2021-11-13] MEDS: LACTATED RINGERS 1,000 ML 999 ML IV CONT ×3 (18:46→22:21)
[2021-11-13 18:47] LABS: Basophils Absolute Auto 0.1 K/mm3 (0.0-0.1); Basophils Percent Auto 0.8 % (0.2-1.2); Eosinophils Percent Auto 0.2 % (0-4.4); Hemoglobin 14.7 g/dL (14.0-18.0); Immature Granulocyte Absolute 0.15 K/mm3 (0.00-0.031); Immature Granulocyte Percent A 1.3 % (0-0.5); Lymphocytes Absolute Auto 1.06 K/mm3 (0.9-3.2); Lymphocytes Percent Auto 8.8 % (18.3-44.2); Mean Corpuscular HGB Conc 32.7 g/dl (32-36); Mean Corpuscular Hemoglobin 29.9 pg (26-34); Mean Corpuscular Volume 91.5 fl (80-100); Mean Platelet Volume 10.3 fl (7.4-10.4); Monocytes Absolute Auto 0.4 K/mm3 (0.1-0.6); Monocytes Percent Auto 3.3 % (2.6-8.5); Neutrophils Absolute Auto 10.3 K/mm3 (1.3-6.7); Neutrophils Percent Auto 85.6 % (45.5-73.1); Platelet Count Result 457 k/mm3 (150-375); Red Blood Count 4.92 M/mm3 (4.6-6.20); Red Cell Distribution Width 13.1 % (11.5-14.5)
--- NOTE | 2021-11-13 18:56 | ED.NAVMDI ---
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 and suddenly felt sick and hot and proceeded to vomit about 7 times Emesis is nonbloody He said when he checked his blood sugar this morning it was 120 but here it was high He is not aware that he has had gastroparesis previously but has had DKA He had his gallbladder out last fall He does not drink, he smokes half a pack of cigarettes a day and he smokes pot twice a day Related Data Home Medications Medication Instructions Recorded Confirmed insulin glargine [Lantus U-100 30 unit SUBCUT QPM 08/18/21 10/23/21 Insulin] aspirin [Baby Aspirin] 81 mg PO DAILY 10/23/21 10/23/21 Allergies Allergy/AdvReac Type Severity Reaction Status Date / Time No Known Allergies Allergy Verified 11/13/21 20:52 Review of Systems Review of Systems: All systems reviewed & are unremarkable except as noted in HPI and below Constitutional: Constitutional: Reports no additional constitutional complaints, Denies chills, Denies fever(s), Denies headache(s) and Reports weakness Eyes: Eyes: Reports no additional eye complaints and Denies change in vision ENT: Denies headache(s) and Denies sore throat Cardiovascular: Cardiovascular: Denies chest pain and Denies dyspnea Respiratory: Respiratory: Denies cough and Denies dyspnea Gastrointestinal: Gastrointestinal: Denies abdominal pain, Denies diarrhea, Reports nausea and Reports vomiting Genitourinary: Genitourinary: Denies dysuria and Denies urinary frequency Musculoskeletal: Musculoskeletal: Denies deformity, Denies arthralgias, Denies joint swelling and Denies numbness Integumentary/Breasts: Skin/Breast: Denies rash and Denies wounds Neurologic: Denies headache(s), Denies focal weakness and Denies numbness Psychiatric: Psychiatric: Reports no additional psychiatric complaints Endocrine: Endocrine: Reports no additional endocrine complaints Hematologic/Lymphatic: Hematologic/Lymphatic: Reports no additional hematologic/lymphatic complaints Allergic/Immunologic: Allergic/Immunologic: Reports no additional allergic/immunologic complaints PMF Past Medical History Medical History Abdominal pain History of myocardial infarction due to atherothrombotic coronary artery disease HTN (hypertension) Hypercholesteremia Hyperlipidemia due to type 1 diabetes mellitus Hypokalemia Marijuana use Myocardial infarct, old Nicotine addiction Seizure Type 1 diabetes mellitus with hyperglycemia Viral infection Surgical History Surgical History H/O heart artery stent History of cholecystectomy Family History Family History Father , Meth overdose Diabetes mellitus Mother Hypertension Social History Social History Smoking packs per day: 1 Smoking cigarettes per day: 20.0 Years smoked: 8 Smoking pack-years: 8.00 Smoking status: Current every day smoker Tobacco type: cigarettes Second hand tobacco smoke exposure: Yes Alcohol intake: never Substance use: current Substance use type: marijuana Gender identity (if verbalized by the patient): Male Sexual Orientation (if Verbalized by the Patient): Straight or Heterosexual Exam Const: General: cooperative and alert Nutritional Appearance: thin Orientation/consciousness: patient oriented x3 (alert) HENMT: Head: normal to inspection, normocephalic and atraum
[2021-11-13 19:04] LABS: Amphetamine Screen Urine Negative (Negative); Barbiturate Screen Urine Negative (Negative); Benzodiazepines Screen Urine Negative (Negative); Cannabinoid Screen Urine Positive (Negative); Cocaine Screen Urine Negative (Negative); Methadone Screen Urine Negative (Negative); Opiate Screen Urine Negative (Negative); Phencyclidine Screen Urine Negative (Negative)
[2021-11-13 19:11] LABS: Troponin I < 0.012 ng/mL (0.000-0.034)
[2021-11-13 19:15] LABS: Alanine Aminotransferase 62 U/L (4-50); Albumin Level 5.2 g/dL (3.5-5.1); Alkaline Phosphatase 176 U/L (38-126); Anion Gap 26 mmol/L (8-16); Aspartate Amino Transferase 48 U/L (17-59); Bilirubin,Total 0.9 mg/dL (0.2-1.3); Blood Urea Nitrogen 21 mg/dL (9-20); Calcium 9.9 mg/dL (8.4-10.2); Carbon Dioxide 10 mmol/L (22-30); Chloride 95 mmol/L (98-107); Estimated CRCL calculation 87 ml/min; Estimated Glomerular Filt Rate > 60; Glucose 847 mg/dL (65-110); Lipase 116 U/L (23-300); Magnesium 2.1 mg/dL (1.6-2.3); Potassium 5.6 mmol/L (3.4-5.0); Sodium 131 mmol/L (137-145)
[2021-11-13 19:24] LABS: Beta-Hydroxybutyrate/Acetoacetate 8.18 mmol/L (0.02-0.27)
--- NOTE | 2021-11-13 19:36 | PM.IMHP ---
H&P: HPI History of Present Illness Date/Time: 11/13/21 19:36 Chief Complaint: Intractable nausea and vomiting. Narrative: This is a 26-year-old male with past medical history significant for type 1 diabetes mellitus, recent cholecystectomy, tobacco dependence. With patient presented to the emergency room due to nausea and vomiting that a care today abdominal pain, according to patient he has been his usual state of health he had his gallbladder taken out roughly 3 weeks ago and he seemed to be doing well at home and going about his usual daily routine. Patient states that he has been compliant with his insulin regimen and his meals he denies any fevers, rigors ,chills, diarrhea, cough ,shortness of breath, sputum production, muscle aches and pains ,changes to his vision ,palpitations, diaphoresis or weight loss. Patient initial blood work came back with a glucose in the 800s and anion gap of [address] of abdomen and pelvis was significant for umbilical fat stranding related to recent laparoscopic surgery. Patient has been admitted for further evaluation, management and treatment. Review of Systems Review of Systems: Nausea, vomiting, abdominal pain. Constitutional: Constitutional: Denies chills, Denies fatigue, Denies fever(s), Denies malaise, Denies night sweats and Denies weakness Eyes: Eyes: Denies change in vision ENT: Denies dysphagia, Denies vertigo, Denies dizziness, Denies nasal congestion, Denies nasal discharge, Denies nasal obstruction and Denies odynophagia Cardiovascular: Cardiovascular: Denies rapid heart rate, Denies pedal edema, Denies irregular heart rhythm, Denies claudication, Denies leg edema, Denies lightheadedness, Denies radiating jaw, neck or arm pain, Denies palpitations, Denies dyspnea on exertion and Denies orthopnea Respiratory: Respiratory: Denies chest congestion, Denies cough, Denies excessive phlegm production, Denies dyspnea and Denies wheezing Gastrointestinal: Gastrointestinal: Reports abdominal pain, Denies dyspepsia, Denies heartburn, Denies diarrhea, Reports nausea and Reports vomiting Genitourinary: Genitourinary: Denies dysuria Musculoskeletal: Musculoskeletal: Denies myalgias, Denies muscle cramps, Denies muscle weakness and Denies tingling Integumentary/Breasts: Skin/Breast: Denies rash Comments: Lacerations and excoriations distributed throughout the body. Healing surgical puncture wounds to the abdomen. Neurologic: Denies focal weakness and Denies Sensory deficit (Neuro) Psychiatric: Psychiatric: Reports no additional psychiatric complaints and Reports as per HPI Endocrine: Endocrine: Denies cold intolerance, Denies excessive sweating, Denies fatigue, Denies heat intolerance, Denies polyphagia, Denies polydipsia, Denies polyuria and Denies palpitations Hematologic/Lymphatic: Hematologic/Lymphatic: Reports no additional hematologic/lymphatic complaints and Reports as per HPI Allergic/Immunologic: Allergic/Immunologic: Reports no additional allergic/immunologic complaints and Reports as per HPI PMFSH Past Medical History Medical History Abdominal pain History of myocardial infarction due to atherothrombotic coronary artery disease HTN (hypertension) Hypercholesteremia Hyperlipidemia due to type 1 diabetes mellitus Hypokalemia Marijuana use Myocardial infarct, old Nicotine addiction Seizure Type 1 diabetes mellitus with hyperglycemia Viral infection Surgical History Surgical History H/O heart artery stent History of cholecystectomy Family History Family History Father , Meth overdose Diabetes mellitus Mother Hypertension Social History Social History Smoking packs per day: 0.5 Smoking cigarettes per day: 10.0 Years smoked: 8 Smoking pack-years:
[2021-11-13] MEDS: INSULIN HUMAN REGULAR (*BKC) 100 UNITS in SODIUM CHLORIDE 0.9% IV 99 ML 15.7 UNITS IV CONT (20:38)
[2021-11-13 20:39] LABS: SARS-CoV-2 RNA PCR Positive
[2021-11-13] MEDS: INSULIN HUMAN REGULAR (*BKC) 100 UNITS/ML 6 UNITS IV PUSH (20:43)
[2021-11-13] MEDS: HYDROmorphone HCL INJ (*CRX) 1 MG/ML SYR IV PUSH (20:59)
[2021-11-13 22:07] LABS: Glucose Point of Care > 500 mg/dl (65-105)
--- NOTE | 2021-11-13 22:07 | PC.NURSE ---
left message with certified adapted physical educator, Angelica Dean in regards to patient's admission.
[2021-11-13 22:19] LABS: Anion Gap 24 mmol/L (8-16); Blood Urea Nitrogen 21 mg/dL (9-20); Calcium 9.6 mg/dL (8.4-10.2); Carbon Dioxide 10 mmol/L (22-30); Chloride 104 mmol/L (98-107); Estimated CRCL calculation 97 ml/min; Estimated Glomerular Filt Rate > 60; Glucose 559 mg/dL (65-110); Potassium 4.5 mmol/L (3.4-5.0); Sodium 138 mmol/L (137-145)
[2021-11-13 23:08] LABS: Glucose Point of Care 304 mg/dl (65-105)
[2021-11-13 23:26] VITALS: PULSE 97; RESP 20; O2SAT 99
[2021-11-14] VITALS (7 sets, daily range): BP systolic 96–121; BP diastolic 54–79; PULSE 90–104; RESP 14–18; TEMP 36.8–37.2; O2SAT 97–100; BMI 24.5
[2021-11-14 00:29] LABS: Glucose Point of Care 220 mg/dl (65-105)
[2021-11-14] MEDS: KCL 20 MEQ/D5/0.45% SOD CHL 1,000 ML 150 ML IV CONT (00:30)
[2021-11-14 01:23] LABS: Glucose Point of Care 200 mg/dl (65-105)
[2021-11-14 01:45] LABS: Anion Gap 11 mmol/L (8-16); Blood Urea Nitrogen 18 mg/dL (9-20); Calcium 9.4 mg/dL (8.4-10.2); Carbon Dioxide 20 mmol/L (22-30); Chloride 109 mmol/L (98-107); Estimated CRCL calculation 126 ml/min; Estimated Glomerular Filt Rate > 60; Glucose 207 mg/dL (65-110); Potassium 4.2 mmol/L (3.4-5.0); Sodium 140 mmol/L (137-145)
[2021-11-14 02:33] LABS: Glucose Point of Care 171 mg/dl (65-105)
[2021-11-14 04:05] LABS: Glucose Point of Care 140 mg/dl (65-105)
[2021-11-14 05:20] LABS: Glucose Point of Care 109 mg/dl (65-105)
[2021-11-14 05:58] LABS: Anion Gap 7 mmol/L (8-16); Blood Urea Nitrogen 17 mg/dL (9-20); Carbon Dioxide 24 mmol/L (22-30); Chloride 108 mmol/L (98-107); Estimated CRCL calculation 126 ml/min; Estimated Glomerular Filt Rate > 60; Glucose 113 mg/dL (65-110); Potassium 4.2 mmol/L (3.4-5.0); Sodium 139 mmol/L (137-145)
[2021-11-14] MEDS: INSULIN GLARGINE (*BKC) 100 UNITS/ML 25 UNITS SUB-Q (06:05)
[2021-11-14] MEDS: INSULIN GLARGINE (*BKC) 100 UNITS/ML SUB-Q (08:22)
[2021-11-14] MEDS: PANTOPRAZOLE SODIUM IV 40 MG VIAL IV PUSH (08:23)
[2021-11-14 08:46] LABS: Glucose Point of Care 129 mg/dl (65-105)
[2021-11-14 09:18] LABS: Hemoglobin A1C 11.3 % (<5.7)
--- NOTE | 2021-11-14 09:26 | PM.DS ---
DS: Admitting Diagnosis Discharge Date 11/14/21 Admitting Diagnosis dka DS: Discharge Diagnosis Discharge Diagnosis (1) DKA (diabetic ketoacidosis): Code(s): E11.10 - Type 2 diabetes mellitus with ketoacidosis without coma Status: Acute Assessment and Plan: Patient presented with nausea, vomiting, diarrhea, abdominal pain. Was found to have elevated blood sugars of > 800, with elevated anion gap, elevated beta hydroxybutyrate -patient was given 3 L IV fluid bolus in the ER and started on insulin infusion and transfer the ICU for further management -early this morning patient was transition to long-acting insulin and sliding scale insulin -will start diabetic diet -pantry chef and fire fighters dispatcher to evaluate the patient (2) COVID-19: Code(s): U07.1 - COVID-19 Status: Acute Assessment and Plan: Patient tested positive for SARS-CoV-2 PCR in the ED -denies any shortness of breath, on room air with good O2 sats (3) Tobacco dependence: Code(s): F17.200 - Nicotine dependence, unspecified, uncomplicated Status: Acute Assessment and Plan: Discussed with patient regarding cessation of smoking and he says he is not ready to quit at this time (4) Marijuana use: Code(s): F12.90 - Cannabis use, unspecified, uncomplicated Status: Acute Assessment and Plan: He is not willing to quit marijuana use either (5) Type 1 diabetes mellitus with hyperglycemia: Code(s): E10.65 - Type 1 diabetes mellitus with hyperglycemia Status: Acute Assessment and Plan: Hemoglobin A1c is 11.3 DS: Summary Hospital Course Hospital Course: Patient left AMA Time Spent with Patient Time attestation: Total time spent providing and/or coordinating discharge services: Exam Const: General: cooperative, comfortable, no acute distress, well developed, alert, awake, ill appearing acutely, tired appearing and other Nutritional Appearance: thin Orientation/consciousness: patient oriented x3 HENMT: Head: normal to inspection, normocephalic and atraumatic Ears: hearing grossly normal bilaterally General nose exam: Normal external nose present Face and sinus: normal facial exam Mouth: Yes Normal oral and palatal mucosa present Eyes: General: appearance normal, both eyes and all related structures Alignment and Position: alignment normal Sclera: sclerae normal Pupils: Equal, round and reactive pupils present EOM: EOMs intact bilaterally Neck: Neck: normal visual inspection, full ROM, no lymphadenopathy, supple and no JVD Thyroid: thyroid normal Lymphatic: no lymphadenopathy noted Resp: Effort & Inspection: normal respiratory effort, able to speak in complete sentences and no cough Auscultation: clear to auscultation bilaterally, no crackles, no rales, no rhonchi and no wheezes Cardio: Jugular venous distension: no JVD Rate: regular rate Rhythm: regular rhythm Heart sounds: S1 normal heart sound present and S2 normal heart sound present GI: Inspection: other (Healed surgical puncture wounds to the abdomen) : General: Yes deferred Skin: Rashes: no rashes Trauma: laceration and puncture Wounds: wounds noted Neuro: General: patient oriented x3 and CN's II-XI intact bilaterally Cranial nerves: Yes CN's II-XII intact bilaterally and Yes Equal, round and reactive pupils present Cognition (Neuro): normal cognition Speech: normal speech Gait exam (Neuro): Normal gait present Motor exam (neuro): 5/5 motor strength present throughout Sensory Exam: No Sensory deficit (Neuro) Extrem: General: normal to inspection, full ROM, no joint enlargement and no pedal edema Discharge Plan Discharge Consulting providers: Lyric Marin Patient Disposition: Left Against Medical Advice Patient Instructions: How to Stop Smoking (DC), Basic Carbohydrate Counting (DC) Discharge Medications: No Action Lantus U-100 Insulin 100 unit/mL solution 30 unit SUBCUT QPM RF:
--- NOTE | 2021-11-14 09:33 | WPDCNINT ---
Assessment and Plan Assessment and plan (1) DKA (diabetic ketoacidosis): Code(s): E11.10 - Type 2 diabetes mellitus with ketoacidosis without coma Status: Acute Assessment and Plan: Patient presented with nausea, vomiting, diarrhea, abdominal pain. Was found to have elevated blood sugars of > 800, with elevated anion gap, elevated beta hydroxybutyrate -patient was given 3 L IV fluid bolus in the ER and started on insulin infusion and transfer the ICU for further management -early this morning patient was transition to long-acting insulin and sliding scale insulin -will start diabetic diet -case manager and prepared foods service team member to evaluate the patient (2) COVID-19: Code(s): U07.1 - COVID-19 Status: Acute Assessment and Plan: Patient tested positive for SARS-CoV-2 PCR in the ED -denies any shortness of breath, on room air with good O2 sats (3) Tobacco dependence: Code(s): F17.200 - Nicotine dependence, unspecified, uncomplicated Status: Acute Assessment and Plan: Discussed with patient regarding cessation of smoking and he says he is not ready to quit at this time (4) Marijuana use: Code(s): F12.90 - Cannabis use, unspecified, uncomplicated Status: Acute Assessment and Plan: He is not willing to quit marijuana use either (5) Type 1 diabetes mellitus with hyperglycemia: Code(s): E10.65 - Type 1 diabetes mellitus with hyperglycemia Status: Acute Assessment and Plan: Hemoglobin A1c is 11.3 Additional Plan Discussed with patient updated with his condition and plan of care Code status: Full code Critical care time spent: 39 minute This dictation may have been done utilizing a voice recognition system. Attempts have been made to correct errors. However, there may be uncorrected grammatical, spelling, and recognition errors present. Due to a high probability of clinically significant, life threatening deterioration, the patient required my highest level of preparedness to intervene emergently and I personally spent this critical care time directly and personally managing the patient. This critical care time included obtaining a history; examining the patient; pulse oximetry; ordering and review of studies; arranging urgent treatment with development of a management plan; evaluation of patient's response to treatment; frequent reassessment; and discussions with other providers. It was exclusive of separately billable procedures and treating other patients and teaching time. Please see Assessment and Plan section and the rest of the note for further information on patient assessment and treatment Resistor Coater Consult Note Consult date: 11/14/21 Time Seen: 07:06 Reason for consult: Nausea, vomiting, abdominal pain, Diabetic ketoacidosis, SARS-CoV-2 PCR positive HPI: Jeramie Beckham is a 26 year old male with significant past medical history of diabetes type 1, seizures, tobacco use, marijuana use, hyperkalemia, hyperlipidemia, essential hypertension, myocardial infarction status post stent, abdominal pain history of cholecystectomy presented the ER on 11/13/2021 with complains of nausea, vomiting, abdominal pain and diarrhea. 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 Emesis is nonbloody. When he checked his blood sugars the machine read as high. He has a history of diabetic ketoacidosis in the past. A had a gallbladder surgery in fall of 2020. Does smoke half a packet of cigarettes per day and smokes marijuana twice a day denies any alcohol use or other illicit drug use. Patient was given 3 L IV fluid bolus, started on insulin infusions transferred to the ICU for further management. Off note patient also tested positive for SARS-CoV-2 PCR in the ER. Patient seen examined in the ICU this morning, was transition to long-acting insulin and sliding scale insulin early t
[2021-11-14 12:04] LABS: Glucose Point of Care 234 mg/dl (65-105)
[2021-11-14] MEDS: INSULIN ASPART (*BKC) 100 UNITS/ML SUB-Q (12:53)
--- NOTE | 2021-11-14 13:36 | PC.NURSE ---
This patient, Jeramie Beckham, was received from ICU 10 on 11/14/21 at 1336. Patient/family oriented to unit policies and routines
--- NOTE | 2021-11-14 13:47 | PC.NURSE ---
This patient, Jeramie Beckham, was transferred to [facility] on 11/14/21 at 1336 via wheelchair without issue. Personal belongings sent with patient. Report given to MINNA Flores. Appropriate documentation sent with patient.
--- NOTE | 2021-11-14 16:16 | PC.NURSE ---
At 1600 RN found patient's door open and room found vacant. Patient removed his own IV and set the IV access completely intact on the beside table, along with patient's wrist band, and hospital gown. Charge nurse was immediately notified to inspect the halls and patient's room. Timekeeper was notified shortly after.
--- NOTE | 2021-11-14 16:21 | PC.NURSE ---
Attempt by housekeeper hospital to contact patient leaving AMA and code status. Charge nurse attempted to call Dr. Hernandez, in regards to current patient status.
--- NOTE | 2021-11-14 16:59 | PC.NURSE ---
Dr. Hernandez answered second attempt. Action: to notify patient's primary contact for an update. Nurse attempted to call patient's Person to Notify, Lesvia Berrios, Significant Other. RN left message at [phone].
== END 2021-11-14 16:00 | disposition left against medical advice (07) | DRG 420 ==
LOC: ANHED 18:32 → ANHICU 22:38 → ANH3MEDSUR 11-14 13:40
PROVIDERS: Internal Medicine; Admitting Provider Internal Medicine; Emergency Provider Emergency Medicine; PCP Nurse Practitioner Family; Visit Provider Internal Medicine
DX: E10.10 Type 1 diabetes mellitus with ketoacidosis without coma (principal); E10.69 Type 1 diabetes mellitus with other specified complication; E78.5 Hyperlipidemia, unspecified; F17.210 Nicotine dependence, cigarettes, uncomplicated; F12.90 Cannabis use, unspecified, uncomplicated; I25.10 Atherosclerotic heart disease of native coronary artery without angina pectoris; I10 Essential (primary) hypertension; I25.2 Old myocardial infarction; Z79.4 Long term (current) use of insulin; Z79.82 Long term (current) use of aspirin; U07.1 COVID-19; Z95.5 Presence of coronary angioplasty implant and graft; Z90.49 Acquired absence of other specified parts of digestive tract
CPT/HCPCS: 36415; 80048; 80053; 80307; 82010; 82803; 82948; 83036; 83690; 83735; 84484; 85025; 96361; 96365; 96375; 99285; C9113; C9803; J1170; J1630; J1815; J3480; J7120; U0003; U0005

== ENCOUNTER 2025-04-28 08:13 | Emergency (ER) | payer BC, SELFPAY ==
[2025-04-28] VITALS (10 sets, daily range): BP systolic 107–143; BP diastolic 66–83; PULSE 80–101; RESP 16–20; TEMP 36.6; O2SAT 100
--- NOTE | ~2025-04-28 | XR_ITS ---
Exam: Abdomen 1V HISTORY: constipation, PT STATES LT SIDE ABDOMEN PAIN X2-3MONTHS COMPARISON: Reference is made to CT examination of the abdomen and pelvis dated 10/23/2021 TECHNIQUE: Supine images of the abdomen FINDINGS: Fecal stasis within the ascending, transverse and proximal descending colon. Bowel gas pattern is otherwise unremarkable. Air is present within the rectum. There is no free air or deep sulci. No pathologic calcifications are seen. Lung bases are unremarkable. Bones and soft tissues are unremarkable. IMPRESSION: Fecal stasis within the colon. Air within the rectum. Reviewed, dictated and finalized at location A.
--- OUTSIDE RECORDS SUMMARY | 2025-04-28 08:16 | XMS_ITS | Data Portability ---
Author Organization [facility] MANFREDQueenie Lopez Address [address] [place] [address] Assessment No assessment recorded. Plan of Treatment Reminders Order Date Submit Date Provider Last Modified By Organization Details Last Modified Time Details Appointments None recorded. Lab CBC w/ auto diff 2019 020 [facility], [address], [address], [place], [address], 0 20:08:01 CMP, serum or plasma 2019 020 [facility], [address] [facility] [address], [address], [place], [address], 0 20:08:01 urinalysi s, complete 2019 020 [facility], [address] [facility], [address], [place], [address], 0 20:08:02 lipid panel, serum 2019 020 [facility], [address] [facility] [address], [address], [place], [address], 0 20:08:03 HIV 1+2 AB + HIV 1 p24 Ag, qualitati ve immunoass ay, serum 2019 020 [facility], [address], [address], [place], [address], 0 20:08:04 hepatitis C Ab, signal-to -cutoff, serum or plasma 2019 020 [facility], [address], [address], [place], [address], 0 20:08:05 drug screen, urine 2019 020 [facility], [address], [address], [place], [address], 0 20:08:03 HbA1c (hemoglob in A1c), blood 2019 020 [facility], [address], [address], [place], [address], 0 20:08:04 microalbu min, urine 2019 020 [facility], [address], [address], [place], [address], 0 20:08:05 unlisted lab - TSH w/reflex 2019 020 [facility], [address], [address], [place], [address], 0 20:08:06 H pylori urea breath test, co2 infrared 2019 020 [facility], [address], [address], [place], [address], 0 20:08:06 CBC w/ auto diff 2016 017 [facility], [address], [address], [place], [address], 7 14:29:50 CMP, serum or plasma 2016 017 [facility], [address], [address], [place], [address], 7 14:29:52 urinalysi s, complete 2016 017 [facility], [address], [address], [place], [address], 7 14:29:51 unlisted lab - TSH reflex to t4f 2016 017 [facility], [address], [address], [place], [address], 7 14:31:13 drug screen, urine 2016 017 [facility], [address], [address], [place], [address], 7 14:31:14 HbA1c (hemoglob in A1c), blood 2016 017 [facility], [address], [address], [place], [address], 7 14:29:51 lipid panel, serum 2016 017 [facility], [address], [address], [place], [address], 7 14:29:50 microalbu min/creat inine, mass ratio, urine 2016 017 [facility], [address], [address], [place], [address], 7 14:29:51 Referral diabetic ophthalmo logy referral - Financial Assistanc e needed please. 03/10/20 left message to call/sche dule Ophthalmo logy appointme nt. bpw 2019 020 haider Rodriguez MD, [address], [place], [address], 0 08:03:28 endocrino logy, diabetes & metabolis m specialis t referral - Please call patient to schedule appt. Thank you 2019 020 [place], [address], [place], [address], 0 09:08:28 cardiolog ist referral - please call patient to schedule appt, thank you. 2019 020 [facility] [address], [address], [place], [address], 0 08:00:23 cardiolog ist referral - please call patient to schedule appt, thank you. 2016 017 [email or web address], [address], [address], [place], [address], 7 11:56:34 diabetic ophthalmo logy referral 2016 017 [email or web address], [address], [place], [address], 7 11:56:33 Procedures None recorded. Surgeries None recorded. Imaging None recorded. Medication Orders Lantus U-100 Insulin 100 unit/mL subcutane ous solution 2019 020 [id number], [address], [place], [id number], 0 16:50:29 Novolin R Regular U-100 Insulin 100 unit/mL injection solution 2019 020 [facility] #[id number], [address], [place], [id number], 0 16:50:29 atorvasta tin 40 mg tablet 2019 020 [facility] #[id number], [address], [place], [id number], 0 16:50:28 metoprolo l tartrate 25 mg tablet 2019 020 [facility] #[id number], [address], [place], [id number], 0 16:50:28 Lantus U-100 Insulin 100 unit/mL subcutane ous solution 2019 020 INTERFACE Not available 0 14:28:05 atorvasta tin 40 mg tablet 2019 020 INTERFACE Not available 0 14:30:05 Novolin R Regular U-100 Insulin 100 unit/mL injection solution 2019 020 INTERFACE Not available 0 14:44:07 Dex4 Glucose 4 gram chewable tablet 2019 020 INTERFACE Not available 0 14:52:05 aspirin 81 mg tablet,de layed release 2016 017 [facility] #[id number], [address], [place], [id number], 7 14:39:40 Basaglar KwikPen U-100 Insulin 100 unit/mL (3 mL) subcutane ous 2016 017 [facility] #[id number], [address], [place], [id number], 0 14:05:14 Novolog U-100 Insulin aspart 100 unit/mL subcutane ous solution 2016 017 [facility] #96007, [address], [place], [id number], 0 14:06:54 Patient TargetsNo targets recorded. Patient Instructions Encounter Date Encounter Id Patient Instructions Last Modified By Organization Details Last Modified Time 04/11/2017 [id number] anxiety disorder : care instructions [email or web address] Not available 04/11/2017 14:46:28 type 1 diabetes: care instructions hdoverma Not available 04/11/2017 14:46:28 He needs to stop smoking, he is at increase risk of a [facility] event and . Labs Ophthalmology FU in 6 weeks Cardiology Records oajao Not available 04/11/2017 22:50:25 Patient education. oajao Not availab le 04/11/2017 22:50:19 11/05/2019 [id number] tetanus and diphtheria booster: care instructions oajao Not available 11/05/2019 14:20:41 Records Discharg e summary Endocrinology/Card iology/Ophthalmolo gy Follow up in 6 weeks He should have access to Dextrose tablets at work Lantus 48 units Start Atorvastatin, side effects were discussed Monitor the blood sugars closely. he should not miss his meals oajao Not available 11/05/2019 21:22:39 He appears to be having episodes of symptomatic hypoglycemia and has had difficulty taking breaks at work. I have written a letter to his employer for them to please accomodate him. I am concerned about his poor compliance and multiple admissions with DKA, he has already had a coronary event. He was urged to make an effort to get his diabetes under better control to prevent irreversible complications, morbidity and early mortality. oajao Not available 11/05/2019 21:23:08 05/05/2020 [id number] Cardiology/Eendo cr inology/Ophthalmol ogy as previously referred HBa1C from Follow up in 6 weeks He really should take Metoprolol BID, side effects were discussed oajao Not available 05/05/2020 19:52:54 Complications of uncontrolled DM were discussed in detail. detailed visit oajao Not available 05/05/2020 19:52:05 Reason for Referral Diabetic Ophthalmology Refer ral for Type 1 diabetes mellitus without complication Referring Physician: Lilia Randhawa, Internal Medicine, Encounter Date: 04/11/2017 Pharmacy Intake Technician Referral for Si ngle coronary vessel disease CAD s/p PTCA and stent please call patient to schedule appt, thank you. Referring Physician: Lilia Randhawa, Internal Medicine, Encounter Date: 04/11/2017 Diabetic Ophthalmology Refer ral for Diabetes mellitus Financial Assistance needed please. 03/10/20 left message to call/schedule Ophthalmology appointment. bpw Referring Physician: Lilia Randhawa, Internal Medicine, Encounter Date: 11/05/2019 Pharmacy Intake Technician Referral for Si ngle coronary vessel disease please call patient to schedule appt, thank you. Referring Physician: Lilia Randhawa, Internal Medicine, Encounter Date: 11/05/2019 Endocrinology, Diabetes & Me tabolism Specialist Referral for Uncontrolled type 1 diabetes mellitus Uncontrolled DM Please call patient to schedule appt. Thank you Referring Physician: Lilia Randhawa, Internal Medicine, Encounter Date: 11/05/2019 Results Created Date Observation Date Name Description Value Unit Range Abnormal Flag Note LastModifiedBy Organization Detail LastModifiedTime 12/08/19 20 12/09/2019 CBC w/ auto diff WBC 6.4 x10e3 /uL 3.4-10 .8 Not Available [facility] ([facility]) [address] [place], [address], 12/09/2019 20:08:01 12/08/19 20 12/09/2019 CBC w/ auto diff RBC 5.13 x10e6 /uL 4.14-5 .80 Not Available [facility] ([facility]) [address] [facility], [place], [address], 12/09/2019 20:08:01 12/08/19 20 12/09/2019 CBC w/ auto diff hemoglobin 14.9 g/dL 13.0-1 7.7 Not Available [facility] ([facility]) [address] [place], [address], 12/09/2019 20:08:01 12/08/19 20 12/09/2019 CBC w/ auto diff hematocrit 46.5 % 37.5-5 1.0 Not Available [facility] ([facility]) [address] [facility], [place], [address], 12/09/2019 20:08:01 12/08/19 20 12/09/2019 CBC w/ auto diff MCV 91 fL 79-97 Not Available [facility] ([facility]) [address] [facility], [place], [address], 12/09/2019 20:08:01 12/08/19 20 12/09/2019 CBC w/ auto diff MCH 29.0 pg 26.6-3 3.0 Not Available [facility] ([facility]) [address] [facility], [place], [address], 12/09/2019 20:08:01 12/08/19 20 12/09/2019 CBC w/ auto diff MCHC 32.0 g/dL 31.5-3 5.7 Not Available [facility] ([facility]) [address] [facility], [place], [address], 12/09/2019 20:08:01 12/08/19 20 12/09/2019 CBC w/ auto diff RDW 11.8 % 11.6-1 5.4 Not Available [facility] ([facility]) [address] [facility], [place], [address], 12/09/2019 20:08:01 12/08/19 20 12/09/2019 CBC w/ auto diff platelets 361 x10e3 /uL 150-45 0 Not Available [facility] ([facility]) [address] [facility], [place], [address], 12/09/2019 20:08:01 12/08/19 20 12/09/2019 CBC w/ auto diff neutrophils 55 % not estab. Not Available [facility] ([facility]) [address] [facility], [place], [address], 12/09/2019 20:08:01 12/08/19 20 12/09/2019 CBC w/ auto diff lymphs 32 % not estab. Not Available [facility] ([facility]) [address] [place], [address], 12/09/2019 20:08:01 12/08/19 20 12/09/2019 CBC w/ auto diff monocytes 6 % not estab. Not Available [facility] ([facility]) [address] [place], [address], 12/09/2019 20:08:01 12/08/19 20 12/09/2019 CBC w/ auto diff eos 5 % not estab. Not Available [facility] ([facility]) [address] [place], [address], 12/09/2019 20:08:01 12/08/19 20 12/09/2019 CBC w/ auto diff basos 1 % not estab. Not Available [facility] ([facility]) [address] [place], [address], 12/09/2019 20:08:01 12/08/19 20 12/09/2019 CBC w/ auto diff immature cells PRESCRIPTION CLERK LENSES Not Available [facility] ([facility]) [address] [place], [address], 12/09/2019 20:08:01 12/08/19 20 12/09/2019 CBC w/ auto diff neutrophils (absolute) 3.5 x10e3 /uL 1.4-7. 0 Not Available [facility] ([facility]) [address] [place], [address], 12/09/2019 20:08:01 12/08/19 20 12/09/2019 CBC w/ auto diff lymphs (absolute) 2.0 x10e3 /uL 0.7-3. 1 Not Available [facility] ([facility]) [address] [place], [address], 12/09/2019 20:08:01 12/08/19 20 12/09/2019 CBC w/ auto diff monocytes(ab solute) 0.4 x10e3 /uL 0.1-0. 9 Not Available [facility] ([facility]) [address] [facility], [place], [address], 12/09/2019 20:08:01 12/08/19 20 12/09/2019 CBC w/ auto diff eos (absolute) 0.3 x10e3 /uL 0.0-0. 4 Not Available [facility] ([facility]) [address] [facility], [place], [address], 12/09/2019 20:08:01 12/08/19 20 12/09/2019 CBC w/ auto diff baso (absolute) 0.1 x10e3 /uL 0.0-0. 2 Not Available [facility] ([facility]) [address] [facility], [place], [address], 12/09/2019 20:08:01 12/08/19 20 12/09/2019 CBC w/ auto diff immature granulocytes 1 % not estab. Not Available [facility] ([facility]) [address] [facility], [place], [address], 12/09/2019 20:08:01 12/08/19 20 12/09/2019 CBC w/ auto diff immature grans (abs) 0.0 x10e3 /uL 0.0-0. 1 Not Available [facility] ([facility]) [address] [facility], [place], [address], 12/09/2019 20:08:01 12/08/19 20 12/09/2019 CBC w/ auto diff NRBC PRESCRIPTION CLERK LENSES Not Available [facility] ([facility]) [address] [facility], [place], [address], 12/09/2019 20:08:01 12/08/19 20 12/09/2019 CBC w/ auto diff hematology comments: PRESCRIPTION CLERK LENSES Not Available [facility] ([facility]) [address] [facility], [place], [address], 12/09/2019 20:08:01 12/08/19 20 12/09/2019 CMP, serum or plasm a glucose 211 mg/dL 65-99 above high normal Not Available [facility] ([facility]) [address] [place], [address], 12/09/2019 20:08:01 12/08/19 20 12/09/2019 CMP, serum or plasm a BUN 8 mg/dL 6-20 Not Available [facility] ([facility]) [address] [place], [address], 12/09/2019 20:08:01 12/08/19 20 12/09/2019 CMP, serum or plasm a creatinine 0.74 mg/dL 0.76-1 .27 below low normal Not Available [facility] ([facility]) [address] [place], [address], 12/09/2019 20:08:01 12/08/19 20 12/09/2019 CMP, serum or plasm a eGFR if nonafricn AM 128 mL/mi n/1.7 3 >59 Not Available [facility] ([facility]) [address] [place], [address], 12/09/2019 20:08:01 12/08/19 20 12/09/2019 CMP, serum or plasm a eGFR if africn AM 148 mL/mi n/1.7 3 >59 Not Available [facility] ([facility]) [address] [place], [address], 12/09/2019 20:08:01 12/08/19 20 12/09/2019 CMP, serum or plasm a BUN/creatini ne ratio 11 9-20 Not Available [facility] ([facility]) [address] [place], [address], 12/09/2019 20:08:01 12/08/19 20 12/09/2019 CMP, serum or plasm a sodium 141 mmol/ L 134-14 4 Not Available [facility] ([facility]) [address] [place], [address], 12/09/2019 20:08:01 12/08/19 20 12/09/2019 CMP, serum or plasm a potassium 4.5 mmol/ L 3.5-5. 2 Not Available [facility] ([facility]) [address] [facility] [place], [address], 12/09/2019 20:08:01 12/08/19 20 12/09/2019 CMP, serum or plasm a chloride 103 mmol/ L 96-106 Not Available [facility] ([facility]) [address] [place], [address], 12/09/2019 20:08:01 12/08/19 20 12/09/2019 CMP, serum or plasm a carbon dioxide, total 23 mmol/ L 20-29 Not Available [facility] ([facility]) [address] [place], [address], 12/09/2019 20:08:01 12/08/19 20 12/09/2019 CMP, serum or plasm a calcium 9.9 mg/dL 8.7-10 .2 Not Available [facility] ([facility]) [address] [place], [address], 12/09/2019 20:08:01 12/08/19 20 12/09/2019 CMP, serum or plasm a protein, total 6.7 g/dL 6.0-8. 5 Not Available [facility] ([facility]) [address] [place], [address], 12/09/2019 20:08:01 12/08/19 20 12/09/2019 CMP, serum or plasm a albumin 4.3 g/dL 4.1-5. 2 Ple ase note refer ence eleonora sandoval e Not Available [facility] ([facility]) [address] [place], [address], 12/09/2019 20:08:01 12/08/19 20 12/09/2019 CMP, serum or plasm a globulin, total 2.4 g/dL 1.5-4. 5 Not Available [facility] ([facility]) [address] [place], [address], 12/09/2019 20:08:01 12/08/19 20 12/09/2019 CMP, serum or plasm a A/G ratio 1.8 1.2-2. 2 Not Available [facility] ([facility]) [address] [place], [address], 12/09/2019 20:08:01 12/08/19 20 12/09/2019 CMP, serum or plasm a bilirubin, total 0.3 mg/dL 0.0-1. 2 Not Available [facility] ([facility]) [address] [place], [address], 12/09/2019 20:08:01 12/08/19 20 12/09/2019 CMP, serum or plasm a alkaline phosphatase 129 IU/L 39-117 above high normal Not Available [facility] ([facility]) [address] [place], [address], 12/09/2019 20:08:01 12/08/19 20 12/09/2019 CMP, serum or plasm a AST (SGOT) 67 IU/L 0-40 above high normal Not Available [facility] ([facility]) [address] [place], [address], 12/09/2019 20:08:01 12/08/19 20 12/09/2019 CMP, serum or plasm a ALT (SGPT) 90 IU/L 0-44 above high normal Not Available [facility] ([facility]) [address] [place], [address], 12/09/2019 20:08:01 12/08/19 20 12/09/2019 urina lysis , compl ete specific gravity >=1.03 0 1.005- 1.030 abnormal Not Available [facility] ([facility]) [address] [place], [address], 12/09/2019 20:08:02 12/08/19 20 12/09/2019 urina lysis , compl ete pH 5.5 5.0-7. 5 Not Available [facility] ([facility]) [address] [place], [address], 12/09/2019 20:08:02 12/08/19 20 12/09/2019 urina lysis , compl ete urine-color YELLOW yellow Not Available [facility] ([facility]) [address] [facility], [place], [address], 12/09/2019 20:08:02 12/08/19 20 12/09/2019 urina lysis , compl ete appearance CLEAR clear Not Available [facility] ([facility]) [address] [place], [address], 12/09/2019 20:08:02 12/08/19 20 12/09/2019 urina lysis , compl ete WBC esterase NEGATI VE negati ve Not Available [facility] ([facility]) [address] [place], [address], 12/09/2019 20:08:02 12/08/19 20 12/09/2019 urina lysis , compl ete protein NEGATI VE negati ve/tra ce Not Available [facility] ([facility]) [address] [place], [address], 12/09/2019 20:08:02 12/08/19 20 12/09/2019 urina lysis , compl ete glucose 3+ negati ve abnormal Not Available [facility] ([facility]) [address] [place], [address], 12/09/2019 20:08:02 12/08/19 20 12/09/2019 urina lysis , compl ete ketones NEGATI VE negati ve Not Available [facility] ([facility]) [address] [place], [address], 12/09/2019 20:08:02 12/08/19 20 12/09/2019 urina lysis , compl ete occult blood NEGATI VE negati ve Not Available [facility] ([facility]) [address] [place], [address], 12/09/2019 20:08:02 12/08/19 20 12/09/2019 urina lysis , compl ete bilirubin NEGATI VE negati ve Not Available [facility] ([facility]) [address] [place], [address], 12/09/2019 20:08:02 12/08/19 20 12/09/2019 urina lysis , compl ete urobilinogen ,semi-qn 0.2 mg/dL 0.2-1. 0 Not Available [facility] ([facility]) [address] [place], [address], 12/09/2019 20:08:02 12/08/19 20 12/09/2019 urina lysis , compl ete nitrite, urine NEGATI VE negati ve Not Available [facility] ([facility]) [address] [place], [address], 12/09/2019 20:08:02 12/08/19 20 12/09/2019 urina lysis , compl ete microscopic examination COMMEN T Micro scopi c not indic ated and not perfo rmed. Not Available [facility] ([facility]) [address] [place], [address], 12/09/2019 20:08:02 12/08/19 20 12/08/2019 drug scree n, urine drug screen comment: COMMEN T This carlos sis is perfo rmed by immun oassa y. Posit arnie findi ngs are uncon firme d carlos tical test resul ts; if resul ts do not suppo rt expec kimi clini neptali findi ng, confi rmati on by an alter naveed metho dolog y is recom stephanie d. Patie nt metab olic varia bles, speci fic drug chemi stry, and speci men kenneth cteri stics can affec t test outco me. Techn ical consu ltati on is avail able at [email or web address], or call toll free [phone]. Not Available [facility] ([facility]) [address] [place], [address], 12/09/2019 20:08:02 12/08/19 20 12/09/2019 drug scree n, urine amphetamines , urine NEGATI VE NG/mL cutoff =1000 Amphe tamin e test inclu ger Amphe tamin e and Metha mphet amine . Not Available [facility] ([facility]) [address] [place], [address], 12/09/2019 20:08:02 12/08/19 20 12/09/2019 drug scree n, urine barbiturates NEGATI VE NG/mL cutoff =200 Not Available [facility] ([facility]) [address] [place], [address], 12/09/2019 20:08:02 12/08/19 20 12/09/2019 drug scree n, urine benzodiazepi luther NEGATI VE NG/mL cutoff =300 Not Available [facility] ([facility]) [address] [place], [address], 12/09/2019 20:08:02 12/08/19 20 12/09/2019 drug scree n, urine cannabinoid NEGATI VE NG/mL cutoff =50 Not Available [facility] ([facility]) [address] [place], [address], 12/09/2019 20:08:02 12/08/19 20 12/09/2019 drug scree n, urine cocaine (metab.) NEGATI VE NG/mL cutoff =300 Not Available [facility] ([facility]) [address] [place], [address], 12/09/2019 20:08:02 12/08/19 20 12/09/2019 drug scree n, urine opiates NEGATI VE NG/mL cutoff =300 Opiat e test inclu ger Codei ne and Morph ine only. Not Available [facility] ([facility]) [address] [place], [address], 12/09/2019 20:08:02 12/08/19 20 12/09/2019 drug scree n, urine phencyclidin e NEGATI VE NG/mL cutoff =25 Not Available [facility] ([facility]) [address] [place], [address], 12/09/2019 20:08:02 12/08/19 20 12/09/2019 lipid panel , serum cholesterol, total 250 mg/dL 100-19 9 above high normal Not Available [facility] ([facility]) [address] [place], [address], 12/09/2019 20:08:03 12/08/19 20 12/09/2019 lipid panel , serum triglyceride s 219 mg/dL 0-149 above high normal Not Available [facility] ([facility]) [address] [place], [address], 12/09/2019 20:08:03 12/08/19 20 12/09/2019 lipid panel , serum HDL cholesterol 51 mg/dL >39 Not Available [facility]) [address] [place], [address], 12/09/2019 20:08:03 12/08/19 20 12/09/2019 lipid panel , serum VLDL cholesterol neptali 44 mg/dL 5-40 above high normal Not Available [facility] ([facility]) [address] [place], [address], 12/09/2019 20:08:03 12/08/19 20 12/09/2019 lipid panel , serum LDL cholesterol calc 155 mg/dL 0-99 above high normal Not Available [facility] ([facility]) [address] [facility], [place], [address], 12/09/2019 20:08:03 12/08/19 20 12/09/2019 lipid panel , serum comment: PRESCRIPTION CLERK LENSES Not Available [facility] ([facility]) [address] [facility], [place], [address], 12/09/2019 20:08:03 12/08/19 20 12/09/2019 HbA1c (hemo globi n A1c), blood hemoglobin A1C 11.1 % 4.8-5. 6 above high normal Predi abete s: 5.7 - 6.4 Diabe mansi: >6.4 Glyce mann contr ol for adult s with diabe mansi: <7.0 Not Available [facility] ([facility]) [address] [facility], [place], [address], 12/09/2019 20:08:03 12/08/19 20 12/09/2019 HIV 1+2 AB + HIV 1 p24 Ag, quali tativ e immun oassa y, serum HIV screen 4TH generation wrfx NON REACTI VE non reacti ve Not Available [facility] ([facility]) [address] [facility], [place], [address], 12/09/2019 20:08:04 12/08/19 20 12/09/2019 hepat itis C Ab, signa l-to- cutof f, serum or plasm a HCV Ab <0.1 s/co_ ratio 0.0-0. 9 Not Available [facility] ([facility]) [address] [facility], [place], [address], 12/09/2019 20:08:04 12/08/19 20 12/09/2019 hepat itis C Ab, signa l-to- cutof f, serum or plasm a comment: COMMEN T Non react arnie HCV antib alyssa scree n is consi stent with no HCV infec tion, unles s recen t infec tion is suspe cted or other evide nce exist s to indic ate HCV infec tion. Not Available [facility] ([facility]) [address], [place], [address], 12/09/2019 20:08:04 12/08/19 20 12/09/2019 micro album in, urine albumin, urine 4.2 ug/mL not estab. Not Available [facility] ([facility]) [address], [place], [address], 12/09/2019 20:08:05 12/08/19 20 12/09/2019 H pylor i urea breat h test, co2 infra red H pylori breath test NEGATI VE negati ve Not Available [facility] ([facility]) [address], [place], [address], 12/09/2019 20:08:06 12/08/19 20 12/09/2019 TSH w/ref adam TSH 1.710 uIU/m L 0.450- 4.500 Not Available [facility] ([facility]) [address], [place], [address], 12/09/2019 20:08:06 12/08/19 20 12/08/2019 H pylor i urea breat h test, co2 infra red H. pylori breath collection COMMEN T This speci men was colle cted by [facility] alonzo ochoa. Not Available [facility] ([facility]) [address], [place], [address], 12/09/2019 20:08:07 12/08/19 20 12/09/2019 diabe mansi patie nt educa tion pdf image . Not Available [facility] ([facility]) [address], [place], [address], 12/09/2019 20:08:07 11/05/19 20 10/06/2019 US, abdom en No observ ation record ed. [facility] [address], [place], [address], 05/05/2020 16:35:45 11/05/19 20 10/06/2019 XR, chest No observ [facility]ion [facility] [address], [place], [address], 05/05/2020 16:35:45 Result Notes None recorded. Problems Name Problem SNOMED Code Status Onset Date Resolution Date Notes Provider Name and Address Organization Details Recorded Time Influenza vaccination declined 212636372 Active 2019 Lilia Randhawa MD Attn: Lyndsey braga,[address] [facility], [place], [place], [address] [place] [address] 2, [place] - [facility] 0 14:17:05 History of atrial fibrillation 629645699 Active 2019 Lilia Randhawa MD Attn: Lyndsey braga,[address] [facility], [place], [place], [address] [place] [address] 2, [place] [facility] 0 14:23:36 Single coronary vessel disease 705569800 Active 2019 Lilia Randhawa MD Attn: Lyndsey braga,[address] [facility], [place], [place], [address] [place] [address] 2, [place] [facility] 0 14:23:38 Uncontrolled type 1 diabetes mellitus 640182622 Active 2019 Lilia Randhawa MD Attn: Lyndsey braga,[address] [facility], [place], [place], [address] [place] [address] 2, [place] [facility] 0 14:23:51 History of placement of stent for coronary artery disease 641184040 Active 2019 Lilia Randhawa MD Attn: Lyndsey braga,[address] [facility], [place], [place], [address] [place] [address] 2, [place] [facility] 0 14:24:20 History of myocardial infarction 493744435 Active 2019 Lilia Randhawa MD Attn: Lyndsey braga,[address] [facility], [place], [place], [address] [place] [address] 2, [place] [facility] 0 14:34:16 Pneumococcal vaccination declined 288385661 Active 2019 Lilia Randhawa MD Attn: Lyndsey braga,[address] [facility], [place], [address], [place] - [facility] 0 20:11:10 Diabetes mellitus 45128260 Active 2016 Destini Rosen MA null, [place] - [facility] 7 14:14:06 Problem Notes None recorded. Medical Equipment None Reported. Allergies Allergen ID Allergen Name Allergen Category Reaction Reaction Severity Criticality Documentation Date Start Date Code Code System Note Provider Name and Address Organization Details Recorded Time 88669 Non-stero idal anti-infl ammatory agent (product) medicatio n rash severe Not available 05/20/2017 41000 005 SNOMED STEMI after Epine phrin e for an aller [facility] rxn Lilia Randhawa MD Attn: Lyndsey braga,[address] [facility], [place], [address], [place] - [facility] 7 19:44:55 Medications Name Sig Start Date Stop Date Status Note LastModified by Organization Details LastModified Time atorvastati n 40 mg tablet Take 1 tablet every day by oral route as directed for 90 days. 2019 active Not Available Not Available Not Avai lable Lantus U-100 Insulin 100 unit/mL subcutaneou s solution Inject 48 units every day by subcutane ous route at bedtime for 30 days. 2019 active Not Available Not Available Not Avai lable aspirin 81 mg tablet,oscar yed release Take 1 tablet every day by oral route in the morning for 30 days. 2019 active Not Available Not Available Not Avai lable Novolin R Regular U-100 Insulin 100 unit/mL injection solution TID with meals based on the sliding scale.150 -200 [id number] -250 79ryoog92 1-300 58nmprs46 1-350 20 unitsOver 350 units call 2019 active Not Available Not Available Not Avai lable Humalog U-100 Insulin 100 unit/mL subcutaneou s solution INJECT THREE TIMES DAILY WITH MEALS PER SLIDING SCALE. 150-200: 4 UNITS, 201-250: 8 UNITS, 251-300: 12 UNITS, 301-350: 16 UNITS, over 350:call. 2019 active Not Available Not Available Not Avai lable meclizine 25 mg tablet Take 1 tablet 4 times a day by oral route. active Not Available Not Available No t Available insulin syringe U-100 with needle 0.5 mL 30 gauge x 1/2 5/2019 active Not Available Not Available Not Avai lable Novolog U-100 Insulin aspart 100 unit/mL subcutaneou s solution Inject 25 units 3 times a day by sub-q route with meals for 28 days. 11/05 completed Not Available Not Available Not Available Dex4 Glucose 4 gram chewable tablet Take 1 tablet every day by oral route as needed for 30 days. 2019 active Not Available Not Available Not Avai lable insulin syringe U-100 with needle 1/2 mL 30 gauge active Not Available Not Available Not Available metoprolol tartrate 25 mg tablet Take 0.5 tablets twice a day by oral route as directed for 30 days. 2019 active Not Available Not Available Not Avai lable Novolin R Regular U100 Insulin Sliding scale active Not Available Not Available No t Available BD Ultra-Fine Short Pen Needle 31 gauge x 03/05 completed Not Available Not Available Not Available Humalog KwikPen (U-100) Insulin 100 unit/mL subcutaneou s active Not Available Not Available Not Available Basaglar KwikPen U-100 Insulin 100 unit/mL (3 mL) subcutaneou s Inject 50 units every day by sub-q route at bedtime for 30 days. 11/05 completed Not Available Not Available Not Available Vitals Date Recorded Body height Body mass index (BMI) Body weight Heart rate Oxygen saturation Oxygen saturation in Arterial blood by Pulse oximetry Respiratory rate Systolic And Diastolic Provider Name and Address Organization Details Last Updated DateTime 0 161.29 cm 26.2 kg/m2 00236.8 6 g 76 /min 99 % 99 % 12 /min 112/76 mm[Hg] Destini Rosen [place] [facility] 0 14:09:18 Date Recorded Body height Body mass index (BMI) Body weight Heart rate Oxygen saturation Oxygen saturation in Arterial blood by Pulse oximetry Body temperature Systolic And Diastolic Provider Name and Address Organization Details Last Updated DateTime 7 161.29 cm 25.4 kg/m2 69472.3 3 g 86 /min 98 % 98 % 97.9 [degF] 112/62 mm[Hg] Destini Rosen MA [facility] 7 14:16:36 Date Recorded Body height Body mass index (BMI) Body weight Body temperature Oxygen saturation Oxygen saturation in Arterial blood by Pulse oximetry Heart rate Respiratory rate Systolic And Diastolic Provider Name and Address Organization Details Last Updated DateTime 0 161.29 cm 25.7 kg/m2 58695.5 2 g 98 [degF] 99 % 99 % 106 /min 12 /min 110/74 mm[Hg] Destini Rosen [place] [facility] 0 16:14:26 Social History Question Answer Notes LastModified by [employer] Details LastModified Time Tobacco Smoking Status Former Smoker Destini Rosen MA [facility], [facility] 11/05/2019 14:07:05 How Much Tobacco Do You Chew? 2-4/day Information not available 11/05/2019 What Type Of Diet Are You Following? REGULAR Information not available 11/05/2019 Are There Any Guns Present In Your Home? No Information not available 11/05/2019 Hard Of Hearing Or Deaf In One Or Both Ears? No Information not available 11/05/2019 Legally Blind In One Or Both Eyes? No Information not available 11/05/2019 What Was The Date Of Your Most Recent Tobacco Screening? 05/05/2020 Information not available 05/05/2020 Seat Belts Used Routinely Yes Information not available 11/05/2019 How Much Tobacco Do You Smoke? 0.25 PPD Information not available 04/11/2017 On What Date Was Tobacco Cessation Counseling Provided? 11/05/2019 Information not available 11/05/2019 How Many Years Have You Smoked Tobacco? 5 Information not available 04/11/2017 Sex: Unknown Functional Status Question Answer Note LastModified by [employer] Details LastModified Time What is your level of alcohol consumption? None Information not available 11/05/2019 Do you or have you ever used smokeless tobacco? Never used smokeless tobacco Information not available 11/05/2019 Do you or have you ever used e-cigarettes or vape? Never used electronic cigarettes Information not available 11/05/2019 What is your exercise level? Occasional Information not available 11/05/2019 Mental Status None recorded. Family History Relationship Description Onset Age of this Age Resolved Age Notes LastModified by Organization Details LastModified Time Mother Asthma hdoverma Not available 0 04/11/2017 14:11:32 Mother Heart disease hdoverma Not available 2016 14:12:13 Father Asthma hdoverma Not available 0 04/11/2017 14:11:37 Father Attention deficit hyperactivit y disorder hdoverma Not available 04/11 14:11:46 Father Diabetes mellitus hdoverma Not available 2016 14:11:59 Father Heart disease hdoverma Not available 2016 14:12:06 Sister Attention deficit hyperactivit y disorder hdoverma Not available 04/11 14:11:50 Medical History Condition Response Coronary Artery Disease N Other N High Blood Pressure N Atrial Fibrillation N Kidney or Bladder Problems N Thyroid Problems N GI Problems N Depression N COPD N Blood Clots N Skin Problems N Anemia N Heart Attack ([place]) Y Anxiety Disorder Y Diabetes Y Muscle, Joint, or Bone Problems N Seizures/Epilepsy N Acid Reflux (GERD) Y Cancer N Stroke N Asthma Y Allergies Y High Cholesterol N Hepatitis N Liver Disease N Headaches N Heart Failure N Osteoporosis N Immunizations Vaccine Type Date Status Note Provider Nam e and Address Organization Details Recorded Time pneumococcal polysaccharide PPV23 7 completed Lilia Randhawa MD Attn: [address] [place], [address], [facility] 05/05/2020 16:41:10 Tdap 0 completed Not Available [facility] 11/07/2019 02:39:15 Past Encounters Encounter ID Performer Location Encounter Start Date Encounter Closed Date Diagnosis/Indication Diagnosis SNOMED-CT Code Diagnosis ICD10 Code Diagnosis Note [id number] Lliia Randhawa MD [facility] (Adult Med) [address] [place] [address] 04/11/2017 13:51:22 04/12/2017 09:32:18 General examination of patient 759785096 Z00.01 Type 1 sadie betes mellitus without complication 601774841 E10.9 Generalize d anxiety disorder 34295249 F41.1 Single cor onary vessel disease 037410359 I25.10 He believes that his stent is in the RCA History of atrial fibrillation 065876061 Z86.79 Previously on Atenolol, he unfortunat fiorella could not tolerate the side effects [id number] MD [facility] (Adult Med) [address] [place] [phone] 11/05/2019 13:40:01 11/05/2019 16:30:02 General examination of patient 095574230 Z00.01 Diabetes mellitus 742152 09 E11.9 Influenza vaccination declined 787870609 Z28.21 Pneumococc al vaccination declined 898617027 Z28.21 Administra tion of diphtheria, pertussis, and tetanus vaccine 849049648 Z23 Single cor onary vessel disease 170287163 I25.10 He believes that his stent is in the RCA History of atrial fibrillation 349091021 Z86.79 Previously on Atenolol, he unfortunat fiorella could not tolerate the side effectsIt appears that he was on Metoprolol in [facility] ed type 1 diabetes mellitus 541687908 E10.65 Increase Lantus to 48 units History of placement of stent for coronary artery disease 302572425 Z95.5 Start Atorvastat in History of myocardial infarction 650668421 I25.2 In 2013 in [place], [place] History of Helicobacter pylori infection 0174582065 5216005 Z86.19 [id number] Lilia Randhawa MD [facility] (Adult Med) [address] [place] [address] 05/05/2020 15:19:57 05/06/2020 06:00:07 Uncontrolled type 1 diabetes mellitus 328217056 E10.65 Endocrinol ogist to see History of myocardial infarction 005852506 I25.2 In 2013 in [place], [place] Health Concerns Section Related Observation LastModified by Organization Detai ls LastModified Time None Recorded Concern Status LastModified by Organization Details LastModified Time None Recorded Advance Directives Directive None Recorded Payers Insurance Date Sequence Insurance Name Policy Number Policy Jacobs Covered Member ID Jacobs Member ID Guarantor Name 08/15/2020 1 [facility] (MEDICAID HMO) Jeramie Beckham [id number] Jeramie Beckham 05/05/2020 [place] [employer] [place] [employer] Jeramie Beckham [id number] Jeramie Beckham 05/05/2020 2 *SELF PAY* Co grayson Beckham 05/05/2020 SLIDING FEE SCHEDULE - DISCOUNT Jeramie Beckham 2019 1 [facility] (MEDICAID HMO) [id number] Jeramie Beckham [id number] Jeramie Beckham Notes Date Note Type Note Provider Name and Address Organization Details Recorded Time 04/11/2017 text/html Check Up 21 y/o WM who presents to this office as a new patient, his last PCP was a Dr. Keen in [place], he was diagnosed with Type I DM in . In the interim he was in [place] and he had multiple admissions with uncontrolled DM, DKA, AFIB and CAD. He was admitted or treated in the ER locally a few weeks ago for DKA. PMHX: CAD s/p [place] PTCA and stent in [place] 2014, Asthma, ELIS, GERD, Allergies Lilia Randhawa MD Attn: [address] [place], [address], [facility] 04/11/2017 22:51:35 11/05/2019 text/html Diabetes F/UReported bypatient.Labs:last A1C result: 11 Context:taking aspirin daily; not missing doses of medications;home blood sugar range high;home blood sugar range low (below 70);not seeing eye doctor yearly Associated Symptoms:no weight gain; no weight loss; no dizziness; no sweats; no headaches; no confusion; no increased thirst; no increased appetite; no increased urination; no numbness of feet; no calluses on feet;blurred vision I am actually wanting to get a doctor and [place] Met[place] and something for H. Pylori and it turned into gastroparesis Mr Beckham returns, in the interim he has been admitted several times with DKA and had moved back to [place]. He is back and was admitted recently to [facility] with DKA as he was out of Insulin. In [place] he was on Metoprolol, Omeprazole and a cholesterol pill as well. He also had recurrent H.pylori and had an EGD, he mentions gastroparesis but this could be gastritis Lilia Randhawa MD Attn: [address] , [place], [address], [facility] 11/05/2019 21:23:17 05/05/2020 text/html Diabetes F/UReported bypatient.Labs:last A1C result: 07-01 Context:taking aspirin daily; not missing doses of medications; no side effects from medications;home blood sugar range high Associated Symptoms:no weight gain; no weight loss; no dizziness; no sweats; no headaches; no confusion; no increased thirst; no increased appetite; no increased urination; no blurred vision; no numbness of feet; no calluses on feet Mr Beckham returns, in the interim, he was admitted to with Hypoglycemia and dizziness. He states that he was in his [employer] and while at work felt unwell and initially thought his blood sugar was high. He went to the ER at and he was hypoglycemic and they had difficulty getting his blood sugar normalized. He was admitted and the work up was otherwise WNL, he states that he was told that his HBA1C was ~9.4. He feels otherwise well and reports three instances where he has had to take Meclizine for his vertigo. With regards to his referrals to cardiology, endocrinology and ophthalmology, he said that he has only been insured for a few months. He has been compliant with all his medications including Metoprolol which was previously prescribed by his doctor in [place]. Lilia Randhawa MD Attn: [address] , [place], [address], [facility] 05/05/2020 19:53:24
--- OUTSIDE RECORDS SUMMARY | 2025-04-28 08:16 | XMS_ITS | Clinical Summary ---
Author Organization [facility] Address [address] [place] [address] Care Team Providers Care Rag Shredder Name Role Phone Lucius Brooks MD Primary Care Provider [phone] Allergies No known active allergies Medications albuterol sulfate HFA (PROAIR HFA) 108 (90 Base) MCG/ACT inhaler Inhale 2 puffs into the lungs every 6 (six) hours as needed for Wheezing or Shortness of breath. 1 Inhaler 9 Active Additional Information Patient not taking.Reported on 01/11/2025 insulin lispro 100 UNIT/ML injection (VIAL) Inject 5-10 Units into the skin 3 (three) times daily before meals. 1 unit for every 15 grams of carbohydrates Active insulin glargine 100 UNIT/ML injection (VIAL) Inject 40 Units into the skin every morning. Active aspirin EC (ASPIRIN EC) 325 MG tablet Take 325 mg by mouth daily. Active insulin glargine (LANTUS) 100 UNIT/ML injection (VIAL) Inject 40 Units into the skin nightly at bedtime. 10 mL 2 1 Active insulin lispro (HUMALOG) 100 UNIT/ML injection (VIAL) Inject units SQ according to your sliding scale QAC 10 mL 2 1 Active Insulin Syringe-Needle U-100 (INSULIN SYRINGE .3CC/31GX5/16 ) 31G X 5/16 0.3 ML Misc 1 Device by Does not apply route 3 (three) times daily with meals. 100 each 2 1 Active Glucose Blood (FREESTYLE TEST STRIPS) test strip 1 strip by Other route as needed. Use as instructed 100 strip 1 Active naproxen 500 MG tablet Take 1 tablet (500 mg total) by mouth 2 (two) times daily with meals. 20 tablet 2 Active Additional Information Patient not taking.Reported on 01/11/2025 tiZANidine 4 MG tablet Take 1 tablet (4 mg total) by mouth every 6 (six) hours as needed. 12 tablet 2 Active Additional Information Patient not taking.Reported on 01/11/2025 cephALEXin (KEFLEX) 500 MG capsule Take 1 capsule (500 mg total) by mouth every 6 (six) hours. 40 capsule Active Active Problems Problem Noted Date Diagnosed Date Hypoglycemia 06/18/2021 Immunizations Immunization Administration Dates Next Due Tdap (Boostrix) 01/11/2025 Family History Medical History Relation Comments Heart Disease Father Hyperlipidemia Father Hypertension Father Cancer Maternal Grandmother Heart Disease Maternal Grandmother Hyperlipidemia Maternal Grandmother Hypertension Maternal Grandmother Heart Disease Mother Hyperlipidemia Mother Hypertension Mother Cancer Paternal Grandfather Heart Disease Paternal Grandfather Hyperlipidemia Paternal Grandfather Hypertension Paternal Grandfather Relation Status Comments Father Maternal Grandmother Mother Paternal Grandfather Social History Tobacco Use Types Packs/Day Years Used Date Smoking Tobacco: Every Day Cigarettes Smokeless Tobacco: Current Chew Alcohol Use Standard Drinks/Week Comments No 0 (1 standard drink = 0.6 oz pur e alcohol) AUDIT-C Answer Date Recorded Frequency of Alcohol Consumption Never 08/15/2019 Average Number of Drinks Not on file 019 Frequency of Binge Drinking Not on file 07/22 Sex and Gender Information Value Date Recorded Sex Assigned at Male 01/11/2025 11:39 AM CDT Legal Sex Male 4:37 PM CDT Gender Identity Not on file Sexual Orientation Not on file Last Filed Vital Signs Vital Sign Reading Time Taken Comments Blood Pressure 112/72 01/11/2025 11:48 AM CDT Pulse 88 01/11/2025 11:48 AM CDT Temperature 36.1 C (97 F) 01/11/2025 11:48 AM CDT Respiratory Rate 18 01/11/2025 11:48 AM CDT Oxygen Saturation 98% 01/11/2025 11:48 AM CDT Inhaled Oxygen Concentration - - Weight 63.5 kg (140 lb) 01/11/2025 11:48 AM CDT Height 160 cm (5' 3) 01/11/2025 11:48 AM CDT Body Mass Index 24.8 01/11/2025 11:48 AM CDT Plan of Treatment Health Maintenance Due Date Last Done Comments Hepatitis B Vaccines (2 of 3 - 3-dose series) 08/01/1995 07/04/1995 Annual Physical 1997 Hepatitis C 2012 COVID-19 Vaccine ( - 2023- season) 2024 DTaP, Tdap and Td Vaccines (3 - Td or Tdap) 01/11/2035 01/11/2025, 11/05/2019, 07/04/1995, Additional history exists Pneumococcal Vaccine: Pediatrics (0 to 5 Years) and At-Risk Patients (6 to 49 Years) Completed 07/07/2024, 10/22/2016 HPV Vaccines Aged Out No longer eligi ble based on patient's age to complete this topic Meningococcal B Vaccine Aged Out No l onger eligible based on patient's age to complete this topic Meningococcal Vaccine Aged Out No leny sagrario eligible based on patient's age to complete this topic RSV Immunizations Under 20 Months Aged Out No longer eligible based on patient's age to complete this topic Insurance [employer] Care Teams Rag Shredder Relationship Specialty Start Date End Date Lucius Brooks MD [address] [place] [address], [address] [place] [address] PCP - General INTERNAL MEDICINE 01/11/25
--- OUTSIDE RECORDS SUMMARY | 2025-04-28 08:16 | XMS_ITS | Clinical Summary ---
Author Organization [facility] [place] [facility] [place] [address] [facility] [address] [place] [address] Care Team Providers Care Resolute Professional Name Role Phone Unknown, Notinfile Unavailable Unavailable Miscellaneous, Not In File Unavailable Unava ilable Mariia Zamora DO Primary Care Provider [phone] Allergies Active Allergy Reactions Criticality Noted Date Comments Nsaids (Non-Steroidal Anti-I nflammatory Drug) Rash High 07/03/2024 Medications amitriptyline (ELAVIL) 25 mg tabletIndications:Diabet ic Peripheral Neuropathy Take 1 tablet (25 mg total) by mouth nightly 90 tablet 1 07/07/20 24 025 Active aspirin (Enteric Coated Aspirin) 81 mg enteric coated tabletIndications:Myocar dial Reinfarction Prevention Take 1 tablet (81 mg total) by mouth daily 90 tablet 3 07/07/20 24 025 Active atorvastatin (LIPITOR) 40 mg tabletIndications:Dyslip idemia with low high density lipoprotein (HDL) cholesterol with hypertriglyceridemia due to type 2 diabetes mellitus (HCC),Type 1 diabetes mellitus with hyperglycemia (HCC),Coronary artery disease involving [place] coronary artery of [place] heart without angina pectoris,H/O acute myocardial infarction Take 1 tablet (40 mg total) by mouth nightly 90 tablet 1 07/07/20 24 025 Active cholestyramine (QUESTRAN) 4 gram packetIndications:Dyslip idemia with low high density lipoprotein (HDL) cholesterol with hypertriglyceridemia due to type 2 diabetes mellitus (HCC) Take 1 packet by mouth 2 (two) times a day 180 packet 1 07/07/20 24 025 Active insulin detemir (LEVEMIR) 100 unit/mL vial for injectionIndications:Typ e 1 diabetes mellitus with hyperglycemia (HCC) Inject 20 Units under the skin nightly 18 mL 1 07/07/[address] (CYMBALTA) 30 mg capsuleIndications:Diabe tic Peripheral Neuropathy Take 1 capsule (30 mg total) by mouth 2 (two) times a day 180 capsule 1 07/07/20 24 025 Active pen needle, diabetic 31 gauge x /16 needleIndications:Type 1 diabetes mellitus with hyperglycemia (HCC) Use to inject 1-4 times daily as directed. 300 each 4 07/07/20 Active insulin aspart (NovoLOG) 100 unit/mL (3 mL) pen for injectionIndications:Typ e 1 diabetes mellitus with hyperglycemia (HCC) Check FSBS qac x 3 Less than 200 0 units, 201 - 250 5 units, 251- 300 10 units, 301 - 350 15 units, greater than 351 15 units, re-check in one hour, if greater than 351, give 10 units again and call physician or go to nearest ER max total units of Novolog/day is 70 units. 15 mL 1 07/09/20 24 Active Active Problems Problem Noted Date Diagnosed Date H/O acute myocardial infarction 07/07/2024 Assessment & Plan (07/07/2024 1:17 PM CDT): Asymptomatic. Continue ASA, statin. Referred to Cardiology. 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 Will follow. Dyslipidemia with low high d ensity lipoprotein (HDL) cholesterol with hypertriglyceridemia due to type 2 diabetes mellitus 07/07/2024 Assessment & Plan (07/07/2024 1:18 PM CDT): LDL at goal of less than 100, continue current prescription medications. Low chol diet recommended. Diabetic polyneuropathy asso ciated with type 1 diabetes mellitus 07/07/2024 Assessment & Plan (07/07/2024 1:19 PM CDT): Waxing and waning. Re-start amitriptyline. New start on Duloxetine. Referred to Podiatry. Coronary artery disease invo lving [place] coronary artery without angina pectoris 09/03/2022 Assessment & Plan (07/07/2024 1:11 PM CDT): Asymptomatic. Stable. Continue current prescription medications. Type 1 diabetes mellitus with hyperglycemia 08/21 Assessment & Plan (07/07/2024 1:16 PM CDT): Uncontrolled, patient was lost to f/u due to loss of insurance. Will like to re- start his long-acting insulin. Refills given. Referred to Endocrinology for further management. Colon polyp 09/03/2022 History of diabetic ketoacidosis 09/04/2021 S/P cholecystectomy Resolved Problems Problem Noted Date Diagnosed Date Resolved Date Elevated liver enzymes 09/03/202207/07 Cellulitis of right foot 09/02/2022 Abrasion of skin 09/04/2021 07/07/2024 Acute cholecystitis 09/04/2021 07/07/20 24 Immunizations Immunization Administration Dates Next Due DTP / HiB 07/04/1995,1994,1994 Hep B, Adolescent or Pediatric 07/04/1995 Influenza, Trivalent, Preser vative Free, Intramuscular 11/27/2012 MMR 07/04/1995 OPV 1994,1994 Pneumococcal Conjugate Pcv20 07/07/2024 Pneumococcal Polysaccharide PPV23 10/22/2016 Tdap 11/05/2019 Surgical History Surgery Date Site/Laterality Comments CARDIAC STENT PLACEMENT 10/21/2013 - 10/20/2014 CHOLECYSTECTOMY Medical History Medical History Date Comments Diabetes mellitus (HCC) Past heart attack 2013 stent placed Asthma Arthritis Coronary artery disease Family History Medical History Relation Name Comments Diabetes Father Heart attack Father No Known Problems Mother Relation Name Status Comments Father Mother Alive Social History Tobacco Use Types Packs/Day Years Used Date Smoking Tobacco: Former Cigarettes Tobacco Cessation:Counseling Given: Not Answered AUDIT-C Answer Date Recorded Q1: How often do you have a drink containing alc ohol? Never 09/02/2022 Average Number of Drinks Not on file 022 Frequency of Binge Drinking Not on file 08/21 PHQ-2 Answer Date Recorded PHQ-2 Total Score (If total score is 3 or more points, staff should administer the PHQ-9) 0 07/07/2024 Personal Safety Answer Date Recorded Have you ever been in or are you currently in a harmful physical or emotional relationship or is someone making you feel afraid or unsafe? 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 Gender Identity Not on file Sexual Orientation Not on file Obstetrics History Last Filed Vital Signs Vital Sign Reading Time Taken Comments Blood Pressure 104/74 07/07/2024 11:19 AM CDT Pulse 103 07/07/2024 11:19 AM CDT Temperature 36.3 C (97.3 F) 07/07/2024 11:19 AM CDT Respiratory Rate 14 07/07/2024 11:19 AM CDT Oxygen Saturation 98% 07/07/2024 11:19 AM CDT Inhaled Oxygen Concentration - - Weight 63.3 kg (139 lb 9.6 oz) 07/07/2024 11:19 AM CDT Height 160 cm (5' 3) 07/07/2024 11:19 AM CDT Body Mass Index 24.73 07/07/2024 11:19 AM CDT Plan of Treatment Health Maintenance Due Date Last Done Comments Dilated Eye Exam 2004 Varicella Vaccines (1 of 2 - 13+ 2-dose series) 2007 Hemoglobin A1C 01/04/2025 07/07/2024, 042 02/2024, 09/03/2022, Additional history exists Albumin Creatinine Ratio, Urine 07/07/2025 07/07/2024 Depression Screening 07/07/2025 07/07/2024, 09/02/20 22 Foot Exam 07/07/2025 07/07/2024 Lipid Panel 07/07/2025 07/07/2024, 08/21, 04/16/2020, Additional history exists Regular Well Visit/Exam 18-64 07/07/2025 07/07/2024 TSH Level 07/07/2025 07/07/2024, 2 02/2024, 09/27/2020, Additional history exists eGFR 07/07/2025 07/07/2024, 04/2 02/2024, 09/05/2022, Additional history exists DTaP/Tdap/Td Vaccine (5 - Td or Tdap) 11/05/2029 11/05/2019, 07/04/1995, 1994, Additional history exists Influenza Vaccine Discontinued 11/27/2012 Hepatitis B Screening Completed 07/07/2024, 995 Hepatitis C Screening Completed 07/07/2024 , 09/05/2022, 09/04/2021, Additional history exists Pneumococcal vaccine <65 Completed 07/07/2024, 11/2016 HPV Vaccines Aged Out No longer eligi ble based on patient's age to complete this topic Procedures Procedure Name Priority Date/Time Associated Diagnosis Comments POCT HEMOGLOBIN A1C Routine 07/07/2024 1 :24 PM CDT Type 1 diabetes mellitus with hyperglycemia (HCC) HEPATITIS C ANTIBODY Routine 07/07/2024 12:54 PM CDT Need for hepatitis C screening test EGFR Routine 07/07/2024 12:54 PM CDT Annual physical exam Encounter for screening for other digestive system disorders LIPID PANEL Routine 07/07/2024 12:54 PM CDT Annual physical exam Type 1 diabetes mellitus with hyperglycemia (HCC) Coronary artery disease involving [place] coronary artery of [place] heart without angina pectoris THYROID FUNCTION CASCADE Routine 07/07/2024 12:54 PM CDT Annual physical exam Screening for thyroid disorder ALBUMIN CREATININE RATIO, URINE Routine 07/07/2024 12:50 PM CDT Type 1 diabetes mellitus with hyperglycemia (HCC) from Last 3 Months or Most Recently Relevant to Health Maintenance Results * POCT hemoglobin A1c (07/07/2024 1:24 PM CDT) Hemoglobin A1C, POC 10.8 4.0 - 5.6 % Capillary blood 07/07/2024 1 :24 PM CDT Mariia Zamora DO POINT OF CARE TEST ORDERAB LES Final Result * eGFR (07/07/2024 12:54 PM CDT) eGFR >90 >=60 mL/min/1. 73 m2 Comment: Interpretive Data Reference Interval Normal >/= 90 mL/min/1.73m2 Mildly decreased* 60 - 89 mL/min/1.73m2 Mildly to moderately decreased 45 - 59 mL/min/1.73m2 Moderately to severely decreased 30 - 44 mL/min/1.73m2 Severely decreased 15 - 29 mL/min/1.73m2 Kidney Failure < 15 mL/min/1.73m2 *Relative to young adult level Estimated glomerular filtration rate is determined by the 2020 CKD-EPI equation recommended by the National Kidney Foundation (A Unifying Approach to GFR Estimation: Recommendations of the NKF-ASK Task Force on Reassessing the Inclusion of Race in Diagnosing Kidney Disease, JASN 2020). The CKD-EPI equation should not be used for patients with unstable renal function and has not been validated in children and those over 70. Current interpretive data was last reviewed 2021. Blood 07/07/2024 12:5 4 PM CDT 07/07/2024 1:07 PM CDT us Mariia Zamora DO LAB BLOOD ORDERABLES Final Result Performing Organization Address [facility] Co de Phone Number [address] [place] [address] * Thyroid Function [place] (07/07/2024 12:54 PM CDT) TSH 1.71 0.30 - 4.20 mcIUnit/mL Blood 07/07/2024 12:5 4 PM CDT 07/07/2024 1:07 PM CDT Mariia Zamora DO LAB BLOOD ORDERABLES Final Result Performing Organization Address [facility] Co de Phone Number [place] [id number] [facility] [place] [address] * Hepatitis C antibody Blood (07/07/2024 12:54 PM CDT) Hep C Ab Nonreactive Nonreactive Comment: Antibodies to HCV not detected. Does NOT exclude the possibility of recent exposure to HCV. Current interpretive data was last revised on 22 Interpretive Data Nonreactive: Antibodies to HCV not detected. Does NOT exclude the possibility of recent exposure to HCV. Equivocal: Equivocal for HCV antibodies. Supplemental molecular testing will be automatically performed to determine infection status in accordance with current CDC screening recommendations. Reactive: Positive for HCV antibodies. This may represent current or past HCV infection. Supplemental molecular testing will be automatically performed to determine current infection status in accordance with current CDC screening recommendations. Interpretive data was last revised on 2020. Blood 07/07/2024 12:5 4 PM CDT 07/07/2024 1:07 PM CDT Mariia Zamora DO LAB MICROBIOLOGY - GENERAL ORDERABLES Final Result [facility] [address] [facility] Department [place] [address] * (ABNORMAL) Lipid panel (07/07/2024 12:54 PM CDT) Cholesterol 245(H) 30 - 199 mg/dL Comment: Interpretive Data Ages < or = 19 years Acceptable: <170 mg/dL Borderline high: 170-199 mg/dL High: >or= 200 mg/dL Ages > or = 20 years Desirable: <200 mg/dL Borderline high: 200-239 mg/dL High: >or= 240 mg/dL Literature References: 1. Expert Panel on Integrated Guidelines for Cardiovascular Health and Risk Reduction in Children and Adolescents. Pediatrics 2011;128:S213 2. NCEP Expert Panel. Circulation 2004;110:227 Current Interpretive Data was last revised on 2018. Triglycerides 206(H) <=149 mg/dL [facility] Comment: Interpretive Data Ages < or = 9 years Acceptable: <75 mg/dL Borderline high: 75-99 mg/dL High: >or= 100 mg/dL Ages 10 to 20 years Acceptable: <90 mg/dL Borderline high: 90-129 mg/dL High: >or= 130 mg/dL Ages > or = 20 years Desirable: <150 mg/dL Borderline high: 150-199 mg/dL High: 200-499 mg/dL Very high: >or= 499 mg/dL Literature References: 1. Expert Panel on Integrated Guidelines for Cardiovascular Health and Risk Reduction in Children and Adolescents. Pediatrics 2011;128:S213 2. NCEP Expert Panel. Circulation 2004;110:227 Current Interpretive Data was last revised on 2018. HDL 52 >=40 mg/dL [facility] Comment: Interpretive Data Ages < or = 19 years Acceptable: >45 mg/dL Borderline low: 40-45 mg/dL Low: <40 mg/dL Ages > or = 20 years Desirable: >or= 60 mg/dL Low: <40 mg/dL Literature References: 1. Expert Panel on Integrated Guidelines for Cardiovascular Health and Risk Reduction in Children and Adolescents. Pediatrics 2011;128:S213 2. NCEP Expert Panel. Circulation 2004;110:227 Current Interpretive Data was last revised on 2018. LDL, calculated 155(H) <=129 mg/dL [facility] Comment: Interpretive Data Ages < or = 19 years Acceptable: <110 mg/dL Borderline high: 110-129 mg/dL High: >or= 130 mg/dL Ages > or = 20 years Optimal: <100 mg/dL Near optimal: 100-129 mg/dL Borderline high: 130-159 mg/dL High: >160 mg/dL Calculated using the Emilio LDL-C estimating equation. This equation was implemented on 2024. Prior to this date LDL-C was estimated using the Friedewald equation. Literature References: 1. Expert Panel on Integrated Guidelines for Cardiovascular Health and Risk Reduction in Children and Adolescents. Pediatrics 2011;128:S213 2. NCEP Expert Panel. Circulation 2004;110:227 3. Emilio Gonzalez al. ANDREA Cardiol. 2020 February 18;5(5):540-548. doi: [email or web address] Current Interpretive Data was last revised on 2024. Non-HDL Cholesterol 193 mg/dL [facility] Comment: Interpretive Data Ages < or = 19 years Acceptable: <120 mg/dL Borderline high: 120-144 mg/dL High: >145 mg/dL Ages > or = 20 years When triglycerides are >200 mg/dL, Non-HDL cholesterol is a secondary target of therapy with treatment goals that are 30 mg/dL greater than the LDL cholesterol target. Literature References: 1. Expert Panel on Integrated Guidelines for Cardiovascular Health and Risk Reduction in Children and Adolescents. Pediatrics 2011;128:S213 2. NCEP Expert Panel. Circulation 2004;110:227 Current Interpretive Data was last revised on 2018. Chol/HDL ratio 5 [facility] Blood 07/07/2024 12:5 4 PM CDT 07/07/2024 1:07 PM CDT Mariia Zamora DO LAB BLOOD ORDERABLES Final Result Performing Organization Address City/[facility] Co de Phone Number [facility] [address] [place] [address] * Albumin Creatinine Ratio, Urine (07/07/2024 12:50 PM CDT) Albumin Ur <12.0 mg/L Comment: Interpretive Data No reference range established. Current interpretive data was last revised 2019. Creatinine Ur 134.0 mg/dL [facility] Comment: Interpretive Data No reference range established. Current interpretive data was last revised 2019. Albumin Creatinine Ratio, Ur <9 1 - 29 mg/g [facility] Urine 07/07/2024 12:5 0 PM CDT 07/07/2024 1:11 PM CDT Mariia Zamora DO LAB URINE ORDERABLES Final Result Performing Organization Address City/[facility]/ZIP Co de Phone Number [address] [place] [address] from Last 3 Months or Most Recently Relevant to Health Maintenance Insurance [employer] [place] [facility] CHOICE PLUS [facility] HMO/PPO Address: [address] [address] [place] [address] [facility] CHOICE PLUS [facility] HMO/PPO Address: [address] [address] [place] [address] Advance Directives For more information, please contact: [phone] * Full Code (Latest Code Status on File) Date Activated Date Inactivated Comments 09/03/2022 12:51 AM 09/05/2022 9:25 PM * Full Code Date Activated Date Inactivated Comments 09/04/2021 4:12 PM 09/07/2021 4:23 PM Care Teams Resolute Professional Relationship Specialty Start Date End Date Mairia Zamora DO [address] [place], [place] [id number] PCP - General Family Medicine 07/07/24 Unknown, Notinfile 06/30/24 Miscellaneous, Not In File 09/05/22
--- OUTSIDE RECORDS SUMMARY | 2025-04-28 08:16 | XMS_ITS | Referral Summary ---
Author Organization [facility] [address] Address [address] [place] [address] Care Team Providers Care Forestry Workers Name Role Phone Unknown, Notinfile Unavailable Unavailable Miscellaneous, Not In File Unavailable Unava ilable Mariia Zamora DO Primary Care Provider [phone] Allergies Active Allergy Reactions Criticality Noted Date [...] mellitus with hyperglycemia (HCC),Coronary artery disease involving [place] coronary artery of [place] heart without angina pectoris,H/O acute myocardial infarction [...] to Podiatry. 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 Gender Identity Not on file Sexual Orientation [...] 07/07/2024 11:19 AM CDT Plan of Treatment Not on file Procedures Procedure Name Priority Date/Time Associated Diagnosis [...] with hyperglycemia (HCC) Coronary artery disease involving [place] coronary artery of [place] heart without angina pectoris THYROID FUNCTION CASCADE [...] Zamora DO LAB BLOOD ORDERABLES Final Result [facility] [address] [facility] Department [place] [address] * Thyroid Function [place] (07/07/2024 12:54 PM CDT) TSH 1.71 0.30 - 4.20 mcIUnit/mL Blood 07/07/2024 12:5 4 PM CDT 07/07/2024 1:07 PM CDT Mariia Zamora DO LAB BLOOD ORDERABLES Final Result Performing Organization Address [facility] Co de Phone Number RE[facility] [address] [address] * Hepatitis C antibody Blood (07/07/2024 12:54 [...] LAB MICROBIOLOGY - GENERAL ORDERABLES Final Result Performing Organization Address [facility] de Phone Number [facility] [address] [address] * (ABNORMAL) Lipid panel (07/07/2024 12:54 PM [...] NCEP Expert Panel. Circulation 2004;110:227 3. Emilio Noble et al. ANDREA Cardiol. 2020 February 18;5(5):540-548. doi: [...] last revised on 2018. Chol/HDL ratio 5 [facility] Blood 07/07/2024 12:5 4 PM CDT 07/07/2024 1:07 PM CDT Mariia Zamora DO LAB BLOOD ORDERABLES Final Result Performing Organization Address [facility] de Phone Number [facility] [address] [facility] [employer] [place] [address] * Albumin Creatinine Ratio, Urine (07/07/2024 12:50 PM CDT) Albumin Ur <12.0 mg/L Comment: Interpretive Data No reference range established. Current interpretive data was last revised 2019. Creatinine Ur 134.0 mg/dL [facility] Comment: Interpretive Data No reference range established. Current interpretive data was last revised 2019. Albumin Creatinine Ratio, Ur <9 1 - 29 mg/g [facility] Urine 07/07/2024 12:5 0 PM CDT 07/07/2024 1:11 PM CDT Mariia Zamora DO LAB URINE ORDERABLES Final Result Performing Organization Address City/[facility] Co de Phone Number [facility] [address] [facility] [employer] [place] [address] from Last 3 Months or Most Recently Relevant to Health Maintenance Insurance AETNA [facility] CHOICE PLUS [facility] CHOICE PLUS Advance Directives For more information, please contact: [phone] * Full Code (Latest Code Status on File) Date Activated Date Inactivated Comments 09/03/2022 12:51 AM 09/05/2022 9:25 PM * Full Code Date Activated Date Inactivated Comments 09/04/2021 4:12 PM 09/07/2021 4:23 PM Care Teams Forestry Workers Relationship Specialty Start Date End Date Mariia Zamora DO [address] [place] [address] PCP - General Family Medicine 07/07/24 Unknown, Notinfile 06/30/24 Miscellaneous, Not In File 09/05/22
[2025-04-28] MEDS: SODIUM CHLORIDE 0.9% IV 1,000 ML 999 ML IV CONT ×2 (08:38→09:00)
[2025-04-28] MEDS: ONDANSETRON INJ 4 MG/2 ML VIAL IV PUSH (08:38)
[2025-04-28 08:39] LABS: Hematocrit 41.6 % (42.0-52.0); Hemoglobin 13.5 g/dL (14.0-18.0); Immature Granulocyte Percent A 0.3 % (0-0.5); Lymphocytes Absolute Auto 2.20 K/mm3 (0.9-3.2); Mean Corpuscular HGB Conc 32.5 g/dl (32-36); Mean Corpuscular Hemoglobin 28.4 pg (26-34); Mean Corpuscular Volume 87.4 fl (80-100); Nucleated Red Blood Cells Absolute Auto 0.000 K/mm3 (0.0-0.012); Nucleated Red Blood Cells Perc 0.0 % (0.0-0.2); Platelet Count Result 284 k/mm3 (150-375); Red Blood Count 4.76 M/mm3 (4.6-6.20); White Blood Count 7.1 K/mm3 (4.5-10.0)
[2025-04-28 08:59] LABS: Alanine Aminotransferase 81 U/L (6-50); Albumin Level 4.3 g/dL (3.5-5.1); Alkaline Phosphatase 100 U/L (38-126); Anion Gap 15 mmol/L (4-12); Aspartate Amino Transferase 52 U/L (17-59); Bilirubin,Total 0.3 mg/dL (0.2-1.3); Blood Urea Nitrogen 23 mg/dL (9-20); Calcium 10.2 mg/dL (8.4-10.2); Carbon Dioxide 20 mmol/L (22-30); Chloride 98 mmol/L (98-107); Creatine Kinase 142 U/L (55-170); Estimated CRCL calculation 113 ml/min; Estimated Glomerular Filt Rate > 60; Glucose 531 mg/dL (65-110); Lipase 267 U/L (23-300); Potassium 4.1 mmol/L (3.4-5.0); Sodium 133 mmol/L (137-145); Total Protein 7.5 g/dL (6.3-8.2)
[2025-04-28 09:05] LABS: Alveolar/Arterial O2 Gradient 5.5 mmHg; Carboxyhemoglobin 0.3 % THb (0-2.0); Fractional Inspired Oxygen 21 %; HCO3 ABG 18.8 mEq/l (22.0-26.0); Methemoglobin ABG 0.2 %THb (0-1.5); Oxygen Content ABG 16.9 %vol (16.0-22.0); Oxygen Saturation ABG 97.6 % (95.0-100.0); PCO2 ABG 33.8 mmHg (35.0-45.0); PO2 ABG 103.8 mmHg (80.0-100.0); PO2 FiO2 Ratio Arterial Blood 4.94 %; Reduced Hemoglobin 2.6 %THb (0-5.0)
[2025-04-28 09:07] LABS: Liters per Minute 0.0 LPM; Site Drawn LEFT BRACHIAL
--- OUTSIDE RECORDS SUMMARY | 2025-04-28 09:44 | XMS_ITS | Clinical Summary ---
Author Organization [facility] Address [address] [place] [address] Care Team Providers Care Gravity Prospecting Observer Name Role Phone Lucius Brooks MD Primary Care Provider [phone] Allergies No known active allergies Medications albuterol [...] Insurance [employer] Care Teams Gravity Prospecting Observer Relationship Specialty Start Date End Date Lucius Brooks MD [address] [place] [address], [address] [place] [address] PCP - General INTERNAL MEDICINE 01/11/25
--- OUTSIDE RECORDS SUMMARY | 2025-04-28 09:44 | XMS_ITS | Clinical Summary ---
Author Organization [facility] [address] [facility] [address] [place] [address] Care Team Providers Care Nurse Reviewer Name Role Phone Unknown, Notinfile Unavailable Unavailable Miscellaneous, Not In File Unavailable Unava ilable Mariia Zamora DO Primary Care Provider [phone]- [phone] Allergies Active Allergy Reactions Criticality Noted Date [...] mellitus with hyperglycemia (HCC),Coronary artery disease involving [place] coronary artery of [place] heart without angina pectoris,H/O acute myocardial infarction [...] to Podiatry. 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 Gender Identity Not on file Sexual Orientation [...] with hyperglycemia (HCC) Coronary artery disease involving [place] coronary artery of [place] heart without angina pectoris THYROID FUNCTION CASCADE [...] BLOOD ORDERABLES Final Result Performing Organization Address [facility] Co de Phone Number [address] [email or web address] [address] * Thyroid Function [place] (07/07/2024 12:54 PM CDT) TSH 1.71 0.30 - 4.20 mcIUnit/mL Blood 07/07/2024 12:5 4 PM CDT 07/07/2024 1:07 PM CDT Mariia Zamora DO LAB BLOOD ORDERABLES Final Result Performing Organization Address [facility] Co de Phone Number [place] [id number] [facility] [email or web address] [address] * Hepatitis C antibody Blood (07/07/2024 12:54 [...] LAB MICROBIOLOGY - GENERAL ORDERABLES Final Result [facility] [address] [facility] [place] [address] * (ABNORMAL) Lipid panel (07/07/2024 12:54 PM [...] last revised on 2018. Chol/HDL ratio 5 [facility] Blood 07/07/2024 12:5 4 PM CDT 07/07/2024 1:07 PM CDT Mariia Zamora DO LAB BLOOD ORDERABLES Final Result Performing Organization Address City/[facility] Co de Phone Number REJI [address] [place] [address] * Albumin Creatinine Ratio, Urine (07/07/2024 12:50 PM CDT) Albumin Ur <12.0 mg/L Comment: Interpretive Data No reference range established. Current interpretive data was last revised 2019. Creatinine Ur 134.0 mg/dL [facility] Comment: Interpretive Data No reference range established. Current interpretive data was last revised 2019. Albumin Creatinine Ratio, Ur <9 1 - 29 mg/g [facility] Urine 07/07/2024 12:5 0 PM CDT 07/07/2024 1:11 PM CDT Mariia Zamora DO LAB URINE ORDERABLES Final Result Performing Organization Address City/[facility]/ZIP Co de Phone Number [address] [employer] [address] from Last 3 Months or Most Recently Relevant to Health Maintenance Insurance [employer] [place] [facility] CHOICE PLUS [facility] CHOICE PLUS Advance Directives For more information, please contact: [phone] * Full Code (Latest Code Status on File) Date Activated Date Inactivated Comments 09/03/2022 12:51 AM 09/05/2022 9:25 PM * Full Code Date Activated Date Inactivated Comments 09/04/2021 4:12 PM 09/07/2021 4:23 PM Care Teams Nurse Reviewer Relationship Specialty Start Date End Date Mariia Zamora DO [address] [place], [place] [id number] PCP - General Family Medicine 07/07/24 Unknown, Notinfile 06/30/24 Miscellaneous, Not In File 09/05/22
--- OUTSIDE RECORDS SUMMARY | 2025-04-28 09:44 | XMS_ITS | Referral Summary ---
Author Organization [facility] [address] Address [address] [facility] [address] [place] [address] Care Team Providers Care Edge Gluer Name Role Phone Unknown, Notinfile Unavailable Unavailable Miscellaneous, Not In File Unavailable Unava ilable Mariia Zamora DO Primary Care Provider [phone]- [phone] Allergies Active Allergy Reactions Criticality Noted Date [...] mellitus with hyperglycemia (HCC),Coronary artery disease involving [place] coronary artery of [place] heart without angina pectoris,H/O acute myocardial infarction [...] to Podiatry. 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 Gender Identity Not on file Sexual [...] with hyperglycemia (HCC) Coronary artery disease involving [place] coronary artery of [place] heart without angina pectoris THYROID FUNCTION CASCADE [...] DO LAB BLOOD ORDERABLES Final Result [facility] [address] [facility] [place] [address] * Thyroid Function [place] (07/07/2024 12:54 PM CDT) TSH 1.71 0.30 - 4.20 mcIUnit/mL Blood 07/07/2024 12:5 4 PM CDT 07/07/2024 1:07 PM CDT Mariia Zamora DO LAB BLOOD ORDERABLES Final Result Performing Organization Address [facility] Co de Phone Number REJI [address] [address] * Hepatitis C antibody Blood (07/07/2024 12:54 [...] GENERAL ORDERABLES Final Result Performing Organization Address [facility] de Phone Number REJI [address] [address] * (ABNORMAL) Lipid panel (07/07/2024 12:54 PM [...] BLOOD ORDERABLES Final Result Performing Organization Address [facility] de Phone Number [facility] [address] [facility] [place] [employer] [place] [address] * Albumin Creatinine Ratio, Urine (07/07/2024 12:50 PM CDT) Albumin Ur <12.0 mg/L Comment: Interpretive Data No reference range established. Current interpretive data was last revised 2019. Creatinine Ur 134.0 mg/dL [facility] Comment: Interpretive Data No reference range established. Current interpretive data was last revised 2019. Albumin Creatinine Ratio, Ur <9 1 - 29 mg/g [facility] Urine 07/07/2024 12:5 0 PM CDT 07/07/2024 1:11 PM CDT Mariia Zamora DO LAB URINE ORDERABLES Final Result Performing Organization Address City/[facility] Co de Phone Number [facility] [address] [facility] [place] [place] [address] from Last 3 Months or Most Recently Relevant to Health Maintenance Insurance AETNA [facility] CHOICE PLUS [facility] CHOICE PLUS Advance Directives For more information, please contact: [phone] * Full Code (Latest Code Status on File) Date Activated Date Inactivated Comments 09/03/2022 12:51 AM 09/05/2022 9:25 PM * Full Code Date Activated Date Inactivated Comments 09/04/2021 4:12 PM 09/07/2021 4:23 PM Care Teams Edge Gluer Relationship Specialty Start Date End Date Mariia Zamora DO [address] [facility] [place] [address] PCP - General Family Medicine 07/07/24 Unknown, Notinfile 06/30/24 Miscellaneous, Not In File 09/05/22
--- NOTE | 2025-04-28 10:27 | ED.GENADULT ---
HPI - General Adult General Chief complaint: Unspecified Stated complaint: multiple complaints, type 1 diabetic Time Seen by Provider: 04/28/25 08:17 History of Present Illness HPI narrative: Patient is a 29-year-old male who presents ER with multiple issues. He is type 1 diabetic. He has been using insulin 70/30 to control sugars. Reports he typically runs in the 180s to 260s. Reports over last days been feeling more fatigued body aches. No fevers chills sweats. No productive cough. No chest pain or chest pressure. He does report constipation but he is passing gas. Has not tried any stool softeners. Reports he works in the heat may be dehydrated. Mild nausea but no vomiting. Related Data Allergies Allergy/AdvReac Type Severity Reaction Status Date / Time No Known Allergies Allergy Verified 04/12/22 08:06 Review of Systems Review of Systems: All systems reviewed & are unremarkable except as noted in HPI and below Constitutional: Constitutional: Reports no additional constitutional complaints Cardiovascular: Cardiovascular: Reports no additional cardiovascular complaints Respiratory: Respiratory: Reports no additional respiratory complaints Gastrointestinal: Gastrointestinal: Reports no additional gastrointestinal complaints Musculoskeletal: Musculoskeletal: Reports no additional musculoskeletal complaints [facility] Past Medical History Medical History Abdominal pain COVID-19 History of myocardial infarction due to atherothrombotic coronary artery disease HTN (hypertension) Hypercholesteremia Hyperlipidemia due to type 1 diabetes mellitus Hypokalemia Marijuana use Myocardial infarct, old Nicotine addiction Right sided abdominal pain Seizure Tobacco dependence Type 1 diabetes mellitus with hyperglycemia Viral infection Weak urinary stream Surgical History Surgical History H/O heart artery stent History of cholecystectomy Hx laparoscopic cholecystectomy Family History Family History Father , Meth overdose Diabetes mellitus Mother Hypertension Social History Social History Smoking packs per day: 0.5 Smoking cigarettes per day: 10.0 Years smoked: 8 Smoking pack-years: 4.00 Smoking status: Current every day smoker Tobacco type: cigarettes Second hand tobacco smoke exposure: Yes Alcohol intake: never Substance use: current Substance use type: marijuana Living arrangements: with family Occupation/Education: unemployed Gender identity (if verbalized by the patient): Male Sexual Orientation (if Verbalized by the Patient): Straight or Heterosexual Spiritual care concerns: No Exam Narrative: GENERAL: Well-appearing, well-nourished, and in no acute distress. HEAD: Normocephalic, atraumatic. ENT: Mucous membranes moist. CHEST: Clear to auscultation. No respiratory distress. HEART: Regular rate and rhythm. Normal peripheral pulses. ABDOMEN: Soft, nontender, nondistended. EXTREMITIES: Normal range of motion. No edema. SKIN: Warm, dry, no rash. NEURO: Alert and oriented x3. PSYCH: Normal mood and affect. Course Course Emergency Course: Blood sugar down into the 300s after 2 L IV fluid. ABG without acidosis. Mild gap. Discussed need for hydration home and continued insulin. He is to follow-up with PCP or establish with a new one. Patient verbalized understanding. Vital Signs Vital signs: Vital Signs Pulse Rate 95 04/28/25 08:26 Respiratory Rate 17 04/28/25 08:26 Blood Pressure 114/75 04/28/25 08:26 Pulse Oximetry 100 04/28/25 08:26 Temperature 97.9 F 04/28/25 09:18 Pulse Rate 80 04/28/25 09:45 Respiratory Rate 16 04/28/25 09:45 Blood Pressure 118/73 04/28/25 09:45 Pulse Oximetry 100 04/28/25 09:45 Oxygen Delivery Room Air 04/28/25 08:46 Medical Decision Making Vital Signs Vital Signs: Vital Signs Pulse Rate 95 04/28/25 08:26 Respiratory Rate 17 04/28/25 08:26 Blood Pressure 114/75 04/28/25 08:26 Pulse Oximetry 100 04/28/25 08:26 Temperature 97.9 F 04/28/25 09:18 Pulse Rate 80 04/28/25 09:45 Respiratory Rate 16 04/28/25 09:45 Blood Pressure 118/73 04/28/25 09:45 Pulse Oximetry 100 04/28/25 09:45 Oxygen Delivery Room Air 04/28/25 08:46 Lab Data 04/28/25 08:30 04/28/25 08:30 Labs: Lab Results 04/28/25 04/28/25 04/28/25 Range/Units 08:30 08:32 09:02 WBC 7.1 (4.5-10.0) K/mm3 RBC 4.76 (4.6-6.20) M/mm3 Hgb 13.5 L (14.0-18.0) g/dL Hct 41.6 L (42.0-52.0) % MCV 87.4 (80-100) fl MCH 28.4 (26-34) pg MCHC 32.5 (32-36) g/dl RDW 12.8 (11.5-14.5) % Plt Count 284 (150-375) k/mm3 MPV 10.4 (7.4-10.4) fl Immature Gran % (Auto) 0.3 (0-0.5) % Neut % (Auto) 55.0 (45.5-73.1) % Lymph % (Auto) 31.1 (18.3-44.2) % [place] % (Auto) 8.6 H (2.6-8.5) % Eos % (Auto) 3.7 (0-4.4) % Baso % (Auto) 1.3 H (0.2-1.2) % Lymph # (Auto) 2.20 (0.9-3.2) K/mm3 [place] # (Auto) 0.6 (0.1-0.6) K/mm3 Eos # (Auto) 0.3 (0-0.3) K/mm3 Baso # (Auto) 0.1 (0.0-0.1) K/mm3 Abs Immat Gran (auto) 0.02 (0.00-0.031) K/mm3 Absolute Neuts (auto) 3.9 (1.3-6.7) K/mm3 Absolute Nucleated RBC 0.000 (0.0-0.012) K/mm3 Nucleated RBC % 0.0 (0.0-0.2) % Methemoglobin 0.2 (0-1.5) %THb Sodium 133 L (137-145) mmol/L Potassium 4.1 (3.4-5.0) mmol/L Chloride 98 (98-107) mmol/L Carbon Dioxide 20 L (22-30) mmol/L Anion Gap 15 H (4-12) mmol/L BUN 23 H (9-20) mg/dL Creatinine 0.66 L (0.7-1.3) mg/dL Estim Creat Clear Calc 113 ml/min Estimated GFR > 60 (59 - ) Glucose 531 H* (65-110) mg/dL POC Capillary Glucose > 500 H* (65-105) mg/dl Calcium 10.2 (8.4-10.2) mg/dL Total Bilirubin 0.3 (0.2-1.3) mg/dL AST 52 (17-59) U/L ALT 81 H (6-50) U/L Alkaline Phosphatase 100 (38-126) U/L Total Creatine Kinase 142 (55-170) U/L Total Protein 7.5 (6.3-8.2) g/dL Albumin 4.3 (3.5-5.1) g/dL Lipase 267 (23-300) U/L 04/28/25 Range/Units 09:19 WBC (4.5-10.0) K/mm3 RBC (4.6-6.20) M/mm3 Hgb (14.0-18.0) g/dL Hct (42.0-52.0) % MCV (80-100) fl MCH (26-34) pg MCHC (32-36) g/dl RDW (11.5-14.5) % Plt Count (150-375) k/mm3 MPV (7.4-10.4) fl Immature Gran % (Auto) (0-0.5) % Neut % (Auto) (45.5-73.1) % Lymph % (Auto) (18.3-44.2) % [place] % (Auto) (2.6-8.5) % Eos % (Auto) (0-4.4) % Baso % (Auto) (0.2-1.2) % Lymph # (Auto) (0.9-3.2) K/mm3 [place] # (Auto) (0.1-0.6) K/mm3 Eos # (Auto) (0-0.3) K/mm3 Baso # (Auto) (0.0-0.1) K/mm3 Abs Immat Gran (auto) (0.00-0.031) K/mm3 Absolute Neuts (auto) (1.3-6.7) K/mm3 Absolute Nucleated RBC (0.0-0.012) K/mm3 Nucleated RBC % (0.0-0.2) % Methemoglobin (0-1.5) %THb Sodium (137-145) mmol/L Potassium (3.4-5.0) mmol/L Chloride (98-107) mmol/L Carbon Dioxide (22-30) mmol/L Anion Gap (4-12) mmol/L BUN (9-20) mg/dL Creatinine (0.7-1.3) mg/dL Estim Creat Clear Calc ml/min Estimated GFR (59 - ) Glucose (65-110) mg/dL POC Capillary Glucose 354 H (65-105) mg/dl Calcium (8.4-10.2) mg/dL Total Bilirubin (0.2-1.3) mg/dL AST (17-59) U/L ALT (6-50) U/L Alkaline Phosphatase (38-126) U/L Total Creatine Kinase (55-170) U/L Total Protein (6.3-8.2) g/dL Albumin (3.5-5.1) g/dL Lipase (23-300) U/L ABG Data ABG results: 04/28/25 09:02 Puncture Site Left brachial ABG pH 7.362 ABG pCO2 33.8 L ABG pO2 103.8 H ABG PO2/FiO2 Ratio 4.94 ABG HCO3 18.8 L ABG O2 Saturation 97.6 ABG O2 Content 16.9 ABG Base Excess -5.8 A-a Gradient 5.5 Oxyhemoglobin 96.9 Carboxyhemoglobin 0.3 Reduced Hemoglobin 2.6 Total Hemoglobin 12.3 O2 Delivery Device Room air O2 Liters/Min 0.0 FiO2 21 Imaging Data Radiologist's impression: ITS Impressions Abdomen X-Ray 04/28/25 09:22 IMPRESSION: Fecal stasis within the colon. Air within the rectum. Discharge Plan Discharge Clinical Impression: Type 1 diabetes mellitus with hyperglycemia, Constipation Patient Disposition: Home Condition: Stable Instructions: Constipation (ED), Diabetic Hyperglycemia (ED) Additional Instructions: For constipation you are being prescribed MiraLax take twice a day. Make sure you drink plenty of water to help stimulate a bowel movement. Additionally continue your home insulin. Follow-up with a physician listed to continue to control your diabetes. Patient Language: Djib[place]ian Prescriptions: New polyethylene glycol 3350 [Miralax] 17 gram powder in packet 17 g PO BID Qty: 14 0RF No Action ondansetron HCl [Zofran] 4 mg tablet 4 mg PO Q8H Qty: 20 0RF pregabalin [Lyrica] 75 mg capsule 75 mg PO BID 30 Days Qty: 60 2RF (DME) Dexcom G6 Sensor Device See Rx Instructions .Route Qty: 3 2RF Rx Instructions: As directed (DME) Dexcom G6 Transmitter Device See Rx Instructions .Route Qty: 1 5RF Rx Instructions: As directed (DME) Dexcom G6 It Security Manager Misc See Rx Instructions .Route Qty: 1 3RF Rx Instructions: As directed Lantus U-100 Insulin 100 unit/mL solution 30 unit SUBCUT QPM Qty: 10 3RF insulin lispro [Humalog U-100 Insulin] 100 unit/mL solution 1 sliding scale dose SUBCUT USEASDIRECTD Qty: 30 3RF Rx Instructions: SS Lispro ( 1u/15 u carbs and bglc 150-200 : 2u / 201-250 : 4u / 251-300 : 6u / 301-350 : 8u / 351+ : 10u ) Follow-up/Referrals: Toy Osuna DO [Primary Care Provider] - Jared Cary MD [Physician] - 1 Week Stand Alone Forms: Work/School Release IP
== END 2025-04-28 10:44 | disposition home or self-care (01) ==
PROVIDERS: Emergency Provider Emergency Medicine; PCP Family Medicine
DX: E10.65 Type 1 diabetes mellitus with hyperglycemia (principal); Z79.4 Long term (current) use of insulin; K59.00 Constipation, unspecified; F17.210 Nicotine dependence, cigarettes, uncomplicated; I10 Essential (primary) hypertension; E78.5 Hyperlipidemia, unspecified; I25.2 Old myocardial infarction
CPT/HCPCS: 36415; 36600; 74018; 80053; 82375; 82550; 82805; 82948; 83050; 83690; 85018; 85025; 96361; 96374; 99284; J2405; J7030